=== PATIENT | female | born 1955 | race Caucasian/White ===

== ENCOUNTER 2020-06-03 11:25 | Emergency (ER) | payer MEDICAID, SELFPAY ==
--- NOTE | ~2020-06-03 | XR_ITS ---
EXAMINATION: XR TIBIA AND FIBULA, LEFT CLINICAL INFORMATION: Wound, swelling COMPARISON: None TECHNIQUE: AP and lateral views of the left tibia and fibula were obtained. FINDINGS: There is no visible fracture, dislocation or bony abnormality. There is mild soft tissue swelling along the anterior mid left tibia and fibula. There is no periosteal thickening or elevation. XR/XR tibia fibula LT 2V IMPRESSION: Unremarkable left tibia and fibula. Mild soft tissue swelling..
[2020-06-03 11:29] VITALS: BP 139/65; PULSE 100; RESP 19; TEMP 37.5; O2SAT 94; BMI 28.5
--- NOTE | 2020-06-03 12:18 | ED_ITS ---
HPI - Wound/Laceration General Chief Complaint: Wound/Laceration Stated Complaint: wound check Time Seen by Provider: 06/03/20 12:00 Source: patient Mode of arrival: ambulatory Limitations: no limitations History of Present Illness HPI narrative: 64-year-old female here with complaints of left leg wound. The patient tells me that she has had a chronic wound to the left lower leg for about 9 months. She tells me that the wound got worse 2 months ago with increased swelling and redness and she had a blister which popped over the leg. She tells me she went to [facility] on Wednesday and was admitted with IV antibiotics but left against medical advice on Wednesday. The patient tells me that she left because a visitor came in that she did not know and this made her upset and she feels like the security is poor at [facility]. She is currently homeless. She tells me she has had some subjective fevers and chills over the last 48 hours. No other complaints. She tells me while she was at [facility] she had a venous and arterial ultrasound which were reportedly unremarkable. She tells me she also had labs and an x-ray while she was there. Denies medical history. Denies substance use. Related Data Previous Rx's Medication Instructions Recorded doxycycline monohydrate 100 mg PO BID #21 tab 06/03/20 Allergies Allergy/AdvReac Type Severity Reaction Status Date / Time Sulfa (Sulfonamide AdvReac Intermediate Agitated Verified 06/03/20 11:35 Antibiotics) Review of Systems Review of Systems: Yes all other systems are reviewed and are negative Constitutional: Constitutional: Reports no additional constitutional complain ts, Denies body ache(s), Denies chills, Denies fever(s), Denies headache(s) and Denies weakness Eyes: Eyes: Reports no additional eye complaints and Denies change in vision ENT: Reports system reviewed and no additional complaints, except as documented, Denies dizziness, Denies headache(s), Denies nasal congestion, Denies nasal discharge and Denies neck pain Cardiovascular: Cardiovascular: Reports no additional cardiovascular complaints, Denies chest pain, Denies leg edema and Denies dyspnea Respiratory: Respiratory: Reports no additional respiratory complaints, Denies cough and Denies dyspnea Gastrointestinal: Gastrointestinal: Reports no additional gastrointestinal complaints, Denies abdominal pain, Denies diarrhea, Denies nausea and Denies v omiting Genitourinary: Genitourinary: Reports no additional female genitourinary complaints and Denies urinary incontinence Musculoskeletal: Musculoskeletal: Reports no additional musculoskeletal complaints, Denies back pain, Denies arthralgias, Denies joint swelling, Denies neck pain, Denies numbness and Denies tingling Integumentary/Breasts: Skin/Breast: Reports system reviewed and no additional complaints, except as docu, Reports swelling, Reports erythema, Denies rash and Reports wounds Neurologic: Reports system reviewed and no additional complaints, except as documented, Denies Abnormal speech present, Denies dizziness, Denies headache(s), Denies numbness, Denies tingling and Denies weakness PMFSH Past Medical History Attestation statement: The following information was validated with the patient. Source: old records reviewed and nursing notes reviewed Social History Social History Alcohol intake: never Smoking Status: Never smoker Use of substances other than those prescribed or required for medical reasons: No Advance Directives: No Advance Directives Information Provided: No Physical Exam Vital Signs: Vital Signs: Last Vital Signs Temp 99.5 F 06/03/20 11:29 Pulse 100 06/03/20 11:29 Resp 16 06/03/20 14:00 BP 139/65 06/03/20 11:29 Pulse Ox 94 06/03/20 11:29 Body Mass Index 28.5 Const: General: cooperative, healthy appearing, comfortable and no acute distress Orientation/consciousness: patient oriented x3 Limitations: no limitations HENMT: Head: Yes normal to inspection Ears: hearing grossly normal bilaterally General nose exam: Normal external nose present Face and si nus: Yes normal facial exam Mouth: Normal oral and palatal mucosa present Throat: Yes posterior oropharynx normal Eyes: General: appearance normal, both eyes and all related structures Pupils: Equal, round and reactive pupils present Neck: Neck: Yes normal visual inspection Chest: Chest palpation & inspection: normal inspection of the chest Resp: Effort & Inspection: normal respiratory effort Auscultation: clear to auscultation bilaterally Cardio: Rate: regular rate Rhythm: regular rhythm Peripheral pulses: Peripheral pulses 2+ throughout GI: Inspection: Yes normal to inspection Palpation (GI): Soft to palpation and nontender Auscultation: normal bowel sounds Back/Spine/Pelvis: Thoracic/Lumbar Spine: thoracic and lumbar spine normal to inspection Skin: General skin exam: no rashes or lesions noted Neuro: General: patient oriented x3, no focal motor deficits and normal sensation to monofilament Cranial nerves: Yes Equal, round and reactive pupils present Cognition (Neuro): normal cognition Speech: No Abnormal speech present Gait exam (Neuro): Normal gait present Motor exam (neuro): 5/5 motor strength present throughout Extrem: Other: There is erythema over the left lower extremity with tenderness. There is a wound over the anterior espinosa. Neurovascularly intact distally. No calf pain. General: Yes normal to inspection Course Course Course Narrative: 64-year-old female here with wound to the left lower extremity. Admitted over the weekend at [facility] but left against medical advice. Here today for persistent wound now with subjective fevers and chills. Will need labs including blood cultures and lactic acid. Antibiotics ordered. Will obtain records from [facility]. [id number] to obtain records from [facility]. Labs show no leukocytosis or shift. Afebrile here. Skin changes are likely chronic secondary to peripheral vascular disease. There is a wound which does appear chronic and has been there for quite some time with some local warmth and redness. So likely local infection. Wound culture sent. Discussed patient with Dr. Hutson who saw the patient and agrees patient can go home and try oral antibiotics. We did discuss with her nurse who is her community out reach worker. The patient does have a bed at a local motel and her nurse will help her get her oral antibiotics. Reviewed worrisome signs and symptoms and when to return to the emergency department. Comfortable with discharge home. 1800-reviewed records from [facility] which show a bilateral arterial ultrasound which was negative for any stenosis or occlusion. DVT ultrasound left lower extremity which was negative for DVT. MDM - Wound/Laceration Medical Records Attestation: I reviewed the patient's medical records. Lab Data Attestation: I reviewed the patient's lab results. Result diagrams: 06/03/20 12:57 06/03/20 12:56 Labs: Lab Results 06/03/20 06/03/20 06/03/20 Range/Units 12:56 12:56 12:56 WBC (4.8-10.8) X10*3/uL RBC (4.20-5.50) X10*6/uL Hgb (12.0-16.0) g/dl Hct (37-47) % MCV (80-98) fL MCH (27.0-33.0) pg MCHC (31.0-35.0) g/dl RDW (11.0-16.0) % Plt Count (160-400) X10*3/uL MPV (9.4-12.3) fL Immature Gran % (Auto) (0.0-0.4) % Neut % (Auto) (45-73) % Lymph % (Auto) (20-40) % [place] % (Auto) (2-11) % Eos % (Auto) (0-4) % Baso % (Auto) (0-2) % Lymph # (Auto) (1.2-4.9) X10*3/uL [place] # (Auto) (0.1-1.2) X10*3/uL Eos # (Auto) (0.0-0.4) X10*3/uL Baso # (Auto) (0.0-0.2) X10*3/uL Abs Immat Gran (auto) (0.00-0.03) X10*3/uL Absolute Neuts (auto) (2.0-8.3) X10*3/uL Absolute Nucleated RBC (0.0-0.012) X10*3/uL Nucleated RBC % (auto) (0.0-0.2) /100WBC ESR (0-20) MM/HR Hold Blue Top SEE NOTE Sodium 137 (135-145) mmol/L Potassium 4.5 (3.3-5.1) mmol/L Chloride 101 (96-108) mmol/L Carbon Dioxide 23 (22-29) mmol/L Anion Gap 18 (12-20) BUN 18 H (9-16) mg/dL Creatinine 1.05 (0.5-1.4) mg/dL Estim Creat Clear Calc 61.8 Estimated GFR 53 Random Glucose 73 (60-115) mg/dL Lactic Acid 0.9 (0.5-2.0) mmol/L Calcium 8.9 (8.4-10.2) mg/dL Magnesium 2.5 (1.6-2.6) mg/dL Total Bilirubin 0.3 (0.0-1.0) mg/dL Direct Bilirubin < 0.2 (0.0-0.5) mg/dL AST 16 (5-31) U/L ALT 11 (0-31) U/L Alkaline Phosphatase 62 (39-117) U/L C-Reactive Protein (< or = 0.50) mg/dL Total Protein 6.6 (6.5-8.0) g/dL Albumin 4.1 (3.5-5.0) g/dL COVID-19 (GABBI) (Negative) COVID-19 Clin Com 06/03/20 06/03/20 06/03/20 Range/Units 12:57 12:57 12:57 WBC 5.6 (4.8-10.8) X10*3/uL RBC 5.06 (4.20-5.50) X10*6/uL Hgb 14.1 (12.0-16.0) g/dl Hct 44.1 (37-47) % MCV 87.2 (80-98) fL MCH 27.9 (27.0-33.0) pg MCHC 32.0 (31.0-35.0) g/dl RDW 13.6 (11.0-16.0) % Plt Count 253 (160-400) X10*3/uL MPV 8.7 L (9.4-12.3) fL Immature Gran % (Auto) 0.2 (0.0-0.4) % Neut % (Auto) 70.3 (45-73) % Lymph % (Auto) 18.6 L (20-40) % [place] % (Auto) 6.8 (2-11) % Eos % (Auto) 3.4 (0-4) % Baso % (Auto) 0.7 (0-2) % Lymph # (Auto) 1.0 L (1.2-4.9) X10*3/uL [place] # (Auto) 0.4 (0.1-1.2) X10*3/uL Eos # (Auto) 0.2 (0.0-0.4) X10*3/uL Baso # (Auto) 0.0 (0.0-0.2) X10*3/uL Abs Immat Gran (auto) 0.01 (0.00-0.03) X10*3/uL Absolute Neuts (auto) 3.9 (2.0-8.3) X10*3/uL Absolute Nucleated RBC 0.000 (0.0-0.012) X10*3/uL Nucleated RBC % (auto) 0.0 (0.0-0.2) /100WBC ESR (0-20) MM/HR Hold Blue Top Sodium (135-145) mmol/L Potassium (3.3-5.1) mmol/L Chloride (96-108) mmol/L Carbon Dioxide (22-29) mmol/L Anion Gap (12-20) BUN (9-16) mg/dL Creatinine (0.5-1.4) mg/dL Estim Creat Clear Calc Estimated GFR Random Glucose (60-115) mg/dL Lactic Acid (0.5-2.0) mmol/L Calcium (8.4-10.2) mg/dL Magnesium (1.6-2.6) mg/dL Total Bilirubin (0.0-1.0) mg/dL Direct Bilirubin (0.0-0.5) mg/dL AST (5-31) U/L ALT (0-31) U/L Alkaline Phosphatase (39-117) U/L C-Reactive Protein 1.11 H (< or = 0.50) mg/dL Total Protein (6.5-8.0) g/dL Albumin (3.5-5.0) g/dL COVID-19 (GABBI) Negative (Negative) COVID-19 Clin Com See Note 06/03/20 Range/Units 13:20 WBC (4.8-10.8) X10*3/uL RBC (4.20-5.50) X10*6/uL Hgb (12.0-16.0) g/dl Hct (37-47) % MCV (80-98) fL MCH (27.0-33.0) pg MCHC (31.0-35.0) g/dl RDW (11.0-16.0) % Plt Count (160-400) X10*3/uL MPV (9.4-12.3) fL Immature Gran % (Auto) (0.0-0.4) % Neut % (Auto) (45-73) % Lymph % (Auto) (20-40) % [place] % (Auto) (2-11) % Eos % (Auto) (0-4) % Baso % (Auto) (0-2) % Lymph # (Auto) (1.2-4.9) X10*3/uL [place] # (Auto) (0.1-1.2) X10*3/uL Eos # (Auto) (0.0-0.4) X10*3/uL Baso # (Auto) (0.0-0.2) X10*3/uL Abs Immat Gran (auto) (0.00-0.03) X10*3/uL Absolute Neuts (auto) (2.0-8.3) X10*3/uL Absolute Nucleated RBC (0.0-0.012) X10*3/uL Nucleated RBC % (auto) (0.0-0.2) /100WBC ESR 7 (0-20) MM/HR Hold Blue Top Sodium (135-145) mmol/L Potassium (3.3-5.1) mmol/L Chloride (96-108) mmol/L Carbon Dioxide (22-29) mmol/L Anion Gap (12-20) BUN (9-16) mg/dL Creatinine (0.5-1.4) mg/dL Estim Creat Clear Calc Estimated GFR Random Glucose (60-115) mg/dL Lactic Acid (0.5-2.0) mmol/L Calcium (8.4-10.2) mg/dL Magnesium (1.6-2.6) mg/dL Total Bilirubin (0.0-1.0) mg/dL Direct Bilirubin (0.0-0.5) mg/dL AST (5-31) U/L ALT (0-31) U/L Alkaline Phosphatase (39-117) U/L C-Reactive Protein (< or = 0.50) mg/dL Total Protein (6.5-8.0) g/dL Albumin (3.5-5.0) g/dL COVID-19 (GABBI) (Negative) COVID-19 Clin Com Imaging Data tibia/fibular x-ray: Attestation: I personally reviewed and interpreted this imaging study as follows: Radiologist's impression: EXAMINATION: XR TIBIA AND FIBULA, LEFT CLINICAL INFORMATION: Wound, swelling COMPARISON: None TECHNIQUE: AP and lateral views of the left tibia and fibula were obtained. FINDINGS: There is no visible fracture, dislocation or bony abnormality. There is mild soft tissue swelling along the anterior mid left tibia and fibula. There is no periosteal thickening or elevation. XR/XR tibia fibula LT 2V IMPRESSION: Unremarkable left tibia and fibula. Mild soft tissue swelling.. Discharge Plan Discharge Clinical Impression: Wound cellulitis Patient Disposition: Home, Self-Care Instructions: Wound Infection (ED) Additional Instructions: Start taking your antibiotic today. [facility] with [facility]. You must call for an appointment. Keep the wound clean and dry. Watch the wound and return for increasing redness up the leg, foul odor or increasing drainage from the site or fever greater than 100.4 Prescriptions: New doxycycline monohydrate 100 mg tablet 100 mg PO BID Qty: 21 RF: 0 Referrals: Prince Christian MD [Physician] - 2 days Interventions: ED Discharge Assessment Last Done: 06/03/20 15:55 Discharge Date/Time: 06/03/20 15:59
[2020-06-03 13:11] LABS: MANUAL DIFF FLAG NO
[2020-06-03 13:13] LABS: Basophils Percent Auto 0.7 % (0-2); Eosinophils Absolute Auto 0.2 X10*3/uL (0.0-0.4); Eosinophils Percent Auto 3.4 % (0-4); Hematocrit 44.1 % (37-47); Hemoglobin 14.1 g/dl (12.0-16.0); Imm Gran Abs Auto 0.01 X10*3/uL (0.00-0.03); Imm Gran Pct Auto 0.2 % (0.0-0.4); Lymphocytes Percent Auto 18.6 % (20-40); Mean Corpuscular Hemoglobin 27.9 pg (27.0-33.0); Mean Corpuscular Volume 87.2 fL (80-98); Mean Platelet Volume 8.7 fL (9.4-12.3); Monocytes Absolute Auto 0.4 X10*3/uL (0.1-1.2); Monocytes Percent Auto 6.8 % (2-11); Neutrophils Absolute Auto 3.9 X10*3/uL (2.0-8.3); Neutrophils Percent Auto 70.3 % (45-73); Platelet Count 253 X10*3/uL (160-400); Red Blood Count 5.06 X10*6/uL (4.20-5.50); Red Cell Distribution Width 13.6 % (11.0-16.0); White Blood Count 5.6 X10*3/uL (4.8-10.8)
[2020-06-03 13:27] LABS: COVID-19 Test Negative (Negative)
[2020-06-03] MEDS: Piperacillin Sodium/Tazobactam 3.375 GM in 0.9 % Sodium Chloride 50 ML IV (13:31)
[2020-06-03 13:37] LABS: Lactic Acid 0.9 mmol/L (0.5-2.0)
[2020-06-03 13:40] LABS: C Reactive Protein 1.11 mg/dL (< or = 0.50)
[2020-06-03 13:42] LABS: Alanine Aminotransferase 11 U/L (0-31); Albumin Level 4.1 g/dL (3.5-5.0); Alkaline Phosphatase 62 U/L (39-117); Anion Gap 18 (12-20); Aspartate Amino Transferase 16 U/L (5-31); Bilirubin Direct < 0.2 mg/dL (0.0-0.5); Bilirubin Total 0.3 mg/dL (0.0-1.0); Blood Urea Nitrogen 18 mg/dL (9-16); Calcium 8.9 mg/dL (8.4-10.2); Carbon Dioxide 23 mmol/L (22-29); Chloride 101 mmol/L (96-108); Creatinine Clr Calc Pharmacy 61.8; Estimated Glomerular Filt Rate 53; Glucose Random 73 mg/dL (60-115); Magnesium 2.5 mg/dL (1.6-2.6); Potassium 4.5 mmol/L (3.3-5.1); Sodium 137 mmol/L (135-145); Total Protein 6.6 g/dL (6.5-8.0)
[2020-06-03 14:00] VITALS: RESP 16
[2020-06-03 14:09] LABS: Erythrocyte Sedimentation Rate 7 MM/HR (0-20)
--- NOTE | 2020-06-03 15:35 | PC.NURSE ---
attempt to contact sohan goldman contact for pt regarding taxi voucher. no answer on cell or work phone. [phone]
== END 2020-06-03 15:59 | disposition home or self-care (01) ==
PROVIDERS: Nurse Practitioner Family; Emergency Provider Emergency Medicine
DX: L03.116 Cellulitis of left lower limb (principal); Z20.822 Contact with and (suspected) exposure to COVID-19
CPT/HCPCS: 36415; 73590; 80048; 80076; 83605; 83735; 85025; 85652; 86140; 87040; 87071; 87147; 87186; 87205; 87635; 96365; 99285; J2543

== ENCOUNTER 2021-04-25 15:35 | Emergency (ER) | payer MEDICARE, SELFPAY | END 2021-04-25 16:44 | disposition left against medical advice (07) | PROVIDERS: Emergency Provider Emergency Medicine | DX: M79.89 Other specified soft tissue disorders (principal) ==

== ENCOUNTER 2021-09-05 16:00 | Emergency (ER) | payer MEDICARE, SELFPAY ==
[2021-09-05 16:05] VITALS: BP 160/84; PULSE 93; RESP 18; TEMP 36.7; O2SAT 97; BMI 27.3
[2021-09-05 16:36] LABS: COVID-19 Test Positive (Negative); IDNOW Serial# 16C4AD1C; Influenza A Negative (Negative); Influenza B2 Negative (Negative)
--- NOTE | 2021-09-05 17:09 | ED_ITS ---
HPI - General Adult General Chief complaint: General Medical Stated complaint: headaches/sinuses Time Seen by Provider: 09/05/21 17:06 Source: patient Mode of arrival: ambulatory Limitations: no limitations History of Present Illness HPI narrative: 66 yo female came in for evaluation of fever, chills, body ache, sore throat, and sinus pressure. symptoms started since last night, patient is homeless currently stay in motel on the list for housing. Related Data Previous Rx's Medication Instructions Recorded doxycycline monohydrate 100 mg 100 mg PO BID #21 tabs 06/03/20 tablet Allergies Allergy/AdvReac Type Severity Reaction Status Date / Time Sulfa (Sulfonamide AdvReac Intermediate Agitated Verified 06/03/20 11:35 Antibiotics) Review of Systems Review of Systems: All other systems are reviewed and are negative Constitutional: Reports as per HPI and Reports no additional constitutional complaints Eyes: Reports as per HPI and Reports no additional eye complaints Reports system reviewed and no additional complaints, except as documented Cardiovascular: Reports as per HPI and Reports no additional cardiovascular complaints Respiratory: Reports as per HPI and Reports no additional respiratory complaints Gastrointestinal: Reports as per HPI and Reports no additional gastrointestinal complaints Genitourinary: Reports no additional female genitourinary complaints Musculoskeletal: Reports no additional musculoskeletal complaints Skin/Breast: Reports system reviewed and no additional complaints, except as docu Psychiatric: Reports no additional psychiatric complaints Endocrine: Reports no additional endocrine complaints Hematologic/Lymphatic: Reports no additional hematologic/lymphatic complaints Allergic/Immunologic: Reports no additional allergic/immunologic complaints Reports system reviewed and no additional complaints, except as documented and Reports Abnormal speech present FOR[facility] Social History Social History Alcohol intake: never Advance Directives: No Physical Exam ED Vital Signs: Vital Signs - 24 hr 09/05/21 16:05 Temperature 98.1 F Pulse Rate 93 Respiratory Rate 18 Blood Pressure 160/84 H Pulse Oximetry 97 Oxygen Delivery Method Room Air BMI result Body Mass Index 27.3 Vital signs have been reviewed as appeared to be correct. Blood pressure normal. Heart rate normal. Respiration rate normal. Temperature normal. Oxygen saturation normal. Appearance: Alert. Oriented X3. No acute distress. Head: Normal external exam. Normocephalic. Atraumatic. No Bass signs noted. No raccoon eyes noted Eyes: PERRLA. EOMI. Conjunctiva and sclera normal. Eyelids normal. ENT: TM's Normal. Pharynx normal. Uvula midline. Moist mucous membranes. No trismus noted. No drooling noted. No muffled voice noted. Neck: Normal inspection. Neck supple. FROM. No adenopathy. Thyroid Normal. No meningeal signs. No neck mass noted. CVS: Normal heart rate and rhythm. Heart sound normal. No murmurs noted. Pulses normal throughout. Respiratory: No respiratory distress. Painless inspiration. Breath sounds normal. No wheezes/rales/rhonchi noted. Chest nontender. No accessory muscle usage noted or decreased air movement noted. Abdomen: Soft and nontender. Bowel sounds normal in all 4 quadrants. No distention noted. No organomegaly noted. No visible injury noted. Back: No CVA tenderness. Full range of motion noted. Skin: Skin warm and dry. Normal skin color. Normal skin turgor. No rashes/lesions/lacerations noted. Extremities: No lower extremity edema. Extremities exhibit normal range of motion. Extremities nontender. Neuro: Oriented X 3. Cranial nerve exam: II-XII are grossly intact No motor deficit. No sensory deficit. Reflexes normal. Course Course Course Narrative: 66-year-old female came in for evaluation of flu-like symptoms patient tested positive for COVID, normal O2 sat and all her normal respiratory rate, normal lung exam, patient was instructed to continue quarantine and self isolation using face mask an acute social distancing with frequent handwashing. Patient also was instructed to return if worsening of symptoms. Medical Decision Making Lab Data Lab results reviewed: Yes I reviewed the patient's lab results. Labs: Lab Results 09/05/21 09/05/21 Range/Units 16:10 16:10 COVID-19 (GABBI) Positive A (Negative) COVID-19 Clin Com See Note Influenza Type A (BRAYAN) Negative (Negative) Influenza Type B (BRAYAN) Negative (Negative) Influenza A & B Note See Note Discharge Plan Discharge Clinical Impression: COVID-19 virus infection Patient Disposition: Home, Self-Care Instructions: Covid-19 Viral Syndrome and Novel Coronavirus (ED) Hey/Ath Additional Instructions: keep face mask at all times/ self quarantine and isolation/ tylenol if needed for feve. Prescriptions: No Action doxycycline monohydrate 100 mg tablet 100 mg PO BID Qty: 21 0RF Referrals: Physician,Unknown J [Primary Care Provider] - Interventions: ED Discharge Assessment Last Done: 09/05/21 17:16 Discharge Date/Time: 09/05/21 17:27
== END 2021-09-05 17:27 | disposition home or self-care (01) ==
LOC: HO.ED 17:26
PROVIDERS: Emergency Provider Emergency Medicine
DX: U07.1 COVID-19 (principal)
CPT/HCPCS: 87502; 87635; 99283

== ENCOUNTER 2021-10-30 15:49 | Emergency (ER) | payer MEDICAID, SELFPAY ==
[2021-10-30 16:38] VITALS: BP 162/85; PULSE 94; RESP 18; TEMP 36.6; O2SAT 99; BMI 24.3
[2021-10-30 20:52] VITALS: BP 146/78; PULSE 99; RESP 17; O2SAT 95
[2021-10-30 22:43] LABS: MANUAL DIFF FLAG NO
[2021-10-30 22:47] LABS: Basophils Absolute Auto 0.1 X10*3/uL (0.0-0.2); Eosinophils Absolute Auto 0.4 X10*3/uL (0.0-0.4); Eosinophils Percent Auto 4.5 % (0-4); Hemoglobin 13.7 g/dl (12.0-16.0); Imm Gran Abs Auto 0.02 X10*3/uL (0.00-0.03); Imm Gran Pct Auto 0.3 % (0.0-0.4); Lymphocytes Percent Auto 25.8 % (20-40); Mean Corpuscular HGB Conc 31.9 g/dl (31.0-35.0); Mean Corpuscular Hemoglobin 28.8 pg (27.0-33.0); Mean Corpuscular Volume 90.5 fL (80.0-98.0); Monocytes Absolute Auto 0.5 X10*3/uL (0.1-1.2); Monocytes Percent Auto 6.3 % (2-11); Neutrophils Absolute Auto 4.9 x10*3/uL (2.0-8.3); Neutrophils Percent Auto 62.1 % (45-73); Platelet Count 261 X10*3/uL (160-400); Red Blood Count 4.75 X10*6/uL (4.20-5.50); Red Cell Distribution Width 14.6 % (11.0-16.0); White Blood Count 7.9 X10*3/uL (4.8-10.8)
[2021-10-30 23:12] LABS: Alanine Aminotransferase 16 U/L (0-31); Albumin Level 4.3 g/dL (3.5-5.0); Alkaline Phosphatase 77 U/L (39-117); Anion Gap 16 (12-20); Aspartate Amino Transferase 14 U/L (5-31); Bilirubin Total 0.3 mg/dL (0.0-1.0); Blood Urea Nitrogen 16 mg/dL (9-16); Calcium 9.3 mg/dL (8.4-10.2); Carbon Dioxide 24 mmol/L (22-29); Chloride 105 mmol/L (96-108); Creatinine Clr Calc Pharmacy 54.1; Estimated Glomerular Filt Rate 54; Glucose Random 106 mg/dL (60-115); Sodium 141 mmol/L (135-145); Total Protein 6.9 g/dL (6.5-8.0)
--- NOTE | 2021-10-30 23:13 | ED_ITS ---
HPI - General Adult General Chief complaint: General Medical Stated complaint: swollen legs Time Seen by Provider: 10/30/21 23:11 History of Present Illness HPI narrative: Patient is 66 years old homeless presents today with having leg swelling that is been ongoing month. Redness has been ongoing month. Patient had a history of cellulitis was seen in emergency department about a year ago. Presented today with having similar findings. There is no fever no chills. No systemic comp laints. This time around both legs are affected. Not on any medication. No history of congestive heart failure. No history of DVTs in the past. Patient is homeless on her feet most of the day. No chest pain or shortness of breath no diaphoresis. Related Data Previous Rx's Medication Instructions Recorded doxycycline monohydrate 100 mg 100 mg PO BID #21 tabs 06/03/20 tablet doxycycline hyclate 100 mg capsule 100 mg PO BID cough 10 days #20 10/30/21 caps doxycycline hyclate 100 mg capsule 100 mg PO BID cough 7 days #14 caps 10/30/21 Allergies Allergy/AdvReac Type Severity Reaction Status Date / Time Sulfa (Sulfonamide AdvReac Intermediate Agitated Verified 06/03/20 11:35 Antibiotics) Review of Systems Review of Systems: Positive redness to bilateral lower extremity No chest pain No orthopnea No paroxysmal nocturnal dyspnea Yes all other systems are reviewed and are n egative [facility] Social History Social History Alcohol intake: never Advance Directives: No Advance Directives Information Provided: No Physical Exam ED Vital Signs: Vital Signs - 24 hr 10/30/21 16:38 10/30/21 20:52 Temperature 97.9 F Pulse Rate 94 99 Respiratory Rate 18 17 Blood Pressure 162/85 H 146/78 H Pulse Oximetry 99 95 Oxygen Delivery Method Room Air Room Air BMI result Body Mass Index 24.3 Appearance: Alert. Oriented X3. No acute distress. Eyes: Pupils equal, round and reactive to light. ENT: Pharynx normal. Neck: Normal inspection. Neck supple. No lymph nodes noted. No crepitus CVS: Normal heart rate and rhythm. Pulses normal. Normal S1 and S2 Respiratory: No respiratory distress. Breath sounds normal. No Wheezing. No rales Abdomen: Soft and nontender. No rigidity. No distention. good BS x4 Skin: Skin warm and dry. Normal skin color. Normal skin turgor. Extremities: 2+ edema to bilateral lower extremity slightly warm to touch. There is an ulcer over the left mid leg area. Approximately 3 cm x 3 cm in size. When compared to a picture from 2020 this appears about the same. Distal pulses intact. Sensation intact. Neuro: Oriented X 3. No motor deficit. No sensory deficit. Moving all extermities. No slurred speech Medical Decision Making Lab Data Result diagrams: 10/30/21 22:38 10/30/21 22:38 Labs: Lab Results 10/30/21 10/30/21 10/30/21 Range/Units 22:38 22:38 22:38 WBC 7.9 (4.8-10.8) X10*3/uL RBC 4.75 (4.20-5.50) X10*6/uL Hgb 13.7 (12.0-16.0) g/dl Hct 43.0 (37.0-47.0) % MCV 90.5 (80.0-98.0) fL MCH 28.8 (27.0-33.0) pg MCHC 31.9 (31.0-35.0) g/dl RDW 14.6 (11.0-16.0) % Plt Count 261 (160-400) X10*3/uL MPV 9.0 L (9.4-12.3) fL Immature Gran % (Auto) 0.3 (0.0-0.4) % Neut % (Auto) 62.1 (45-73) % Lymph % (Auto) 25.8 (20-40) % [place] % (Auto) 6.3 (2-11) % Eos % (Auto) 4.5 H (0-4) % Baso % (Auto) 1.0 (0-2) % Lymph # (Auto) 2.0 (1.2-4.9) X10*3/uL [place] # (Auto) 0.5 (0.1-1.2) X10*3/uL Eos # (Auto) 0.4 (0.0-0.4) X10*3/uL Baso # (Auto) 0.1 (0.0-0.2) X10*3/uL Abs Immat Gran (auto) 0.02 (0.00-0.03) X10*3/uL Absolute Neuts (auto) 4.9 (2.0-8.3) x10*3/uL Absolute Nucleated RBC 0.000 (0.0-0.012) X10*3/uL Nucleated RBC % (auto) 0.0 (0.0-0.2) /100WBC Sodium 141 (135-145) mmol/L Potassium 4.0 (3.3-5.1) mmol/L Chloride 105 (96-108) mmol/L Carbon Dioxide 24 (22-29) mmol/L Anion Gap 16 (12-20) BUN 16 (9-16) mg/dL Creatinine 1.03 (0.5-1.4) mg/dL Estim Creat Clear Calc 54.1 Estimated GFR 54 Random Glucose 106 (60-115) mg/dL Calcium 9.3 (8.4-10.2) mg/dL Total Bilirubin 0.3 (0.0-1.0) mg/dL AST 14 (5-31) U/L ALT 16 (0-31) U/L Alkaline Phosphatase 77 D (39-117) U/L B-Natriuretic Peptide < 10 (<100) pg/mL Total Protein 6.9 (6.5-8.0) g/dL Albumin 4.3 (3.5-5.0) g/dL Discharge Plan Discharge Patient Disposition: Home, Self-Care Instructions: Cellulitis (ED) Prescriptions: New doxycycline hyclate 100 mg capsule 100 mg PO BID 7 Days Qty: 14 0RF doxycycline hyclate 100 mg capsule 100 mg PO BID 10 Days Qty: 20 0RF No Action doxycycline monohydrate 100 mg tablet 100 mg PO BID Qty: 21 0RF Referrals: Physician,None [Primary Care Provider] - (Warm soaks elevate please take antibiotic please follow-up closely follow-up in 2 days.)
[2021-10-30 23:19] LABS: B Type Natriuretic Peptide < 10 pg/mL (<100)
[2021-10-30 23:55] VITALS: BP 145/70; PULSE 87; RESP 17
--- NOTE | 2021-10-31 | PC.NURSE ---
Patient declined BC stating she just needed script and wanted to go home
== END 2021-10-30 23:57 | disposition home or self-care (01) ==
PROVIDERS: Emergency Provider Emergency Medicine Emergency Medical Services
DX: R60.0 Localized edema (principal); R06.02 Shortness of breath; Z79.899 Other long term (current) drug therapy
CPT/HCPCS: 36415; 80053; 83880; 85025; 87040; 99283

== ENCOUNTER 2022-04-28 09:28 | Emergency (ER) | payer MEDICAID, SELFPAY ==
--- NOTE | ~2022-04-28 | US_ITS ---
EXAMINATION: US VENOUS ULTRASOUND WITH DOPPLER LOWER EXTREMITY, BILATERAL CLINICAL INFORMATION: Leg swelling. Calf pain. COMPARISON: None TECHNIQUE: Ultrasound of the deep veins is performed from the hip to the calf with compression sonography and color and pulse Doppler assessment. Spectral analysis with color-flow imaging is performed. FINDINGS: RIGHT: There is normal venous compression and respiratory variation and augmented flow. The visualized common femoral vein, superficial femoral vein, profunda femoral vein, popliteal vein, and the trifurcation region shows no evidence of deep venous thrombosis. There is no significant popliteal fossa cyst. LEFT: There is normal venous compression and respiratory variation and augmented flow. The visualized common femoral vein, superficial femoral vein, profunda femoral vein, popliteal vein, and the trifurcation region shows no evidence of deep venous thrombosis. There is no significant popliteal fossa cyst. If the patient's symptoms persist, followup ultrasound in 5 days 7 days might be of value to exclude proximal propagation from a non-visualized calf vein. US/US venous duplex LE BI IMPRESSION: No DVT demonstrated in the bilateral lower extremities.
--- NOTE | ~2022-04-28 | XR_ITS ---
EXAMINATION: CR X-RAY FOOT AND ANKLE LEFT CLINICAL INFORMATION: Anterior ankle and foot pain and swelling. COMPARISON: None TECHNIQUE: 3 views each of the left foot and ankle were obtained. FINDINGS: A subtle linear lucency is seen in the medial malleolus. The lateral malleolus appears intact. The tibiotalar joint space is unremarkable. The tarsal bones are normally aligned. There is a small plantar calcaneal spur. The metatarsals and phalanges are unremarkable. Mild to moderate soft tissue swelling is seen most pronounced surrounding the ankle. XR/XR foot LT min 3V IMPRESSION: Subtle linear lucency in the medial malleolus could represent an acute nondisplaced fracture. Correlate with physical exam.
--- NOTE | ~2022-04-28 | XR_ITS ---
EXAMINATION: CR X-RAY FOOT AND ANKLE LEFT CLINICAL INFORMATION: Anterior ankle and foot pain and swelling. COMPARISON: None TECHNIQUE: 3 views each of the left foot and ankle were obtained. FINDINGS: A subtle linear lucency is seen in the medial malleolus. The lateral malleolus appears intact. The tibiotalar joint space is unremarkable. The tarsal bones are normally aligned. There is a small plantar calcaneal spur. The metatarsals and phalanges are unremarkable. Mild to moderate soft tissue swelling is seen most pronounced surrounding the ankle. XR/XR ankle LT min 3V IMPRESSION: Subtle linear lucency in the medial malleolus could represent an acute nondisplaced fracture. Correlate with physical exam.
[2022-04-28 09:58] VITALS: BP 144/66; PULSE 89; RESP 16; TEMP 36.4; O2SAT 93; BMI 27.3
--- OUTSIDE RECORDS SUMMARY | 2022-04-28 10:14 | XMS_ITS | Continuity of Care Document ---
:1955 Author Organization [facility] Address [address] [place] [address]- Care Team Providers Name Role Phone Fatemeh ENCARNACION, Ida Guadalupe Primary Care Physician [place] [facility] [place] - 07/24/[address] [address]- [facility] Encounter Diagnosis Paranoia (Final) - 07/21/19 Discharge Disposition: Transfer to [facility] Facility Attending Physician: Mariola Wells MD Admitting Physician: Mariola Wells MD Referring Physician: Not on Staff, Referring MD Allergies, Adverse Reactions, Alerts Substance Reaction Severity Status Lactose Active Medications aspirin 325 mg oral enteric coated tablet 2 tablet = 650 mg, By Mouth, Daily at bedtime, # 50 tablet, 3 Refills Start Date: 08/31/08 Stop Date: 09/29/08 Status: Orderedazithromycin 250 mg oral tablet 1 tablet = 250 mg, By Mouth, Daily, begin tomorrow, # 4 tablet, 0 Refills, Maintenance, 06/11/16 15:57:29, Tablet Start Date: 06/11/16 Stop Date: 06/15/16 Status: Orderedcalcium-vitamin D 600 mg-400 intl units oral tablet 1, tablet, By Mouth, 3 times a day, 90, tablet, , , 02/10/08 15:09:02, prevent osteoporosis, Print LEANNE Number, [id number], Constant Indicator Start Date: 02/10/08 Status: Orderedloratadine 10 mg oral tablet 10 mg, 1, tablet, By Mouth, Daily, # 7 tablet, Refills 0, Tot. Refills 0, Maintenance, 07/22/17 16:26:21 EDT, Print Requisition Start Date: 07/22/17 Stop Date: 07/29/17 Status: OrderedrisperiDONE 1 mg oral tablet 1 mg, 1, tablet, By Mouth, 2 times a day, Refills 0, Maintenance, 06/11/16 14:26:00 Start Date: 06/11/16 Status: Ordered Problem List Condition Effective Dates Status Health Status Informant Cholecystectomy(Confirmed) Active Chronic schizophrenia(Confirmed) Active Dental caries(Confirmed) 05/28/08 Active Homeless(Confirmed) Active Vital Signs Most recent to oldest [Reference 1 2 3 Range]: Oxygen Saturation [94-100 %] 97 % 100 % 98 % (07/24/19 3:03 PM) (07/24/19 6:43 AM) (07/23/19 2:30 P M) Pulse Rate [55-90 bpm] 76 bpm 97 bpm 81 bpm (07/24/19 3:03 PM) *H* (07/23/19 2:30 PM ) (07/24/19 6:43 AM) Blood Pressure [90-138/55-84 mm 119/76 mm Hg 144/96 mm Hg 122/72 mm Hg Hg] (07/24/19 3:03 PM) *H* (07/23/19 2:30 PM ) (07/24/19 6:43 AM) Respiratory Rate [16-30 br/min] 16 br/min 16 br/min 18 br/min (07/24/19 3:03 PM) (07/24/19 6:43 AM) (07/23/19 2:30 P M) Temperature [96.8-100.4 DegF] 97.5 DegF 97.9 DegF 98 .5 DegF (07/24/19 3:03 PM) (07/24/19 6:43 AM) (07/23/19 2:30 P M) Mode of Delivery (Oxygen) Room air Room air Room a ir (07/24/19 3:03 PM) (07/24/19 6:43 AM) (07/23/19 2:30 P M) Blood pressure sites Arm, right Arm, right Arm, right (07/24/19 3:03 PM) (07/24/19 6:43 AM) (07/23/19 2:30 P M) Temperature Route Oral Oral Oral (07/24/19 3:03 PM) (07/24/19 6:43 AM) (07/23/19 2:30 P M) Social History Social History Type Response Smoking Status Never smoker entered on: 06/11/16 Sex
--- OUTSIDE RECORDS SUMMARY | 2022-04-28 10:14 | XMS_ITS | Continuity of Care Document ---
:1955 Author Organization [facility] Address [address] [place] [address]- Care Team Providers Name Role Phone Fatemeh ENCARNACION, Ida Guadalupe Primary Care Physician [place] [facility] [place] 05/30/20 - 06/29/20 [facility] [address] [place], [place] [address] Attending Physician: Saumya Jackson Admitting Physician: Saumya Jackson Referring Physician: Admtr ArOdalys Allergies, Adverse Reactions, Alerts Substance Reaction Severity Status Lactose Active Problem List Condition Effective Dates Status Health Status Informant Cholecystectomy(Confirmed) Active Chronic schizophrenia(Confirmed) Active Dental caries(Confirmed) 05/28/08 Active Homeless(Confirmed) Active Social History Social History Type Response Smoking Status Never smoker entered on: 06/11/16 Sex
--- OUTSIDE RECORDS SUMMARY | 2022-04-28 10:14 | XMS_ITS | Continuity of Care Document ---
:1955 Author Organization [facility] Address [address] [place] [address]- Care Team Providers Name Role Phone Fatemeh ENCARNACION, Ida Guadalupe Primary Care Physician [place] [facility] [place] 04/25/21 - 05/25/21 [facility] [address], [place] [address] Attending Physician: Saumya Jackson Admitting Physician: Saumya Jackson Referring Physician: AdmtrSaumya Allergies, Adverse Reactions, Alerts Substance Reaction Severity Status Lactose Active Medications CeraVe topical cream 1 application, Topically, 2 times a day, PRN for dry skin, # 454 Gm, 0 Refills, Maintenance, 04/25/21 17:23:00 EST, Cream, Partial fill upon patient request if the prescription is for a schedule II opioid drug. Start Date: 04/25/21 Status: Ordered Problem List Condition Effective Dates Status Health Status Informant Cholecystectomy(Confirmed) Active Chronic schizophrenia(Confirmed) Active Dental caries(Confirmed) 05/28/08 Active Homeless(Confirmed) Active Social History Social History Type Response Smoking Status Never smoker entered on: 06/11/16 Sex
--- OUTSIDE RECORDS SUMMARY | 2022-04-28 10:14 | XMS_ITS | Continuity of Care Document ---
:1955 Author Organization [facility] Address [address] [place] [address]- Care Team Providers Name Role Phone Ida Weldon NP Primary Care Physician [place] [facility] [place] - 06/29/20 [facility] [address] [place], [place] [address] Attending Physician: Chauncey Ching MD Admitting Physician: Chauncey Ching MD Referring Physician: Ida Weldon NP Allergies, Adverse Reactions, Alerts Substance Reaction Severity Status Lactose Active Problem List Condition Effective Dates Status Health Status Informant Cholecystectomy(Confirmed) Active Chronic schizophrenia(Confirmed) Active Dental caries(Confirmed) 05/28/08 Active Homeless(Confirmed) Active Social History Social History Type Response Smoking Status Never smoker entered on: 06/11/16 Sex
--- OUTSIDE RECORDS SUMMARY | 2022-04-28 10:14 | XMS_ITS | Continuity of Care Document ---
:1955 Author Organization [facility] Address [address] [place] [address]- Care Team Providers Name Role Phone Ida Weldon NP Primary Care Physician [id number] Date[facility]s): 04/25/21 - 05/02/21 [facility] [address] [place], [place] [address] Encounter Diagnosis Cellulitis of right leg (Discharge Diagnosis) - 04/25/21 Dry skin (Discharge Diagnosis) - 04/25/21 Attending Physician: Lokesh Bocanegra DO Referring Physician: Ida Weldon NP Allergies, Adverse Reactions, Alerts Substance Reaction Severity Status Lactose Active Medications cephalexin monohydrate 500 mg oral capsule 1 capsule = 500 mg, By Mouth, 4 times a day, for 10 days, # 40 capsule, 0 Refills, Acute 05/05/21 17:23:00 EDT, 04/25/21 17:23:00 EST, Capsule, Partial fill upon patient request if the prescription is for a schedule II opioid drug. Start Date: 04/25/21 Stop Date: 05/05/21 Status: OrderedCeraVe topical cream 1 application, Topically, 2 times a day, PRN for dry skin, # 454 Gm, 0 Refills, Maintenance, 04/25/21 17:23:00 EST, Cream, Partial fill upon patient request if the prescription is for a schedule II opioid drug. Start Date: 04/25/21 Status: Ordered Problem List Condition Effective Dates Status Health Status Informant Cholecystectomy(Confirmed) Active Chronic schizophrenia(Confirmed) Active Dental caries(Confirmed) 05/28/08 Active Homeless(Confirmed) Active Diagnosis Diagnosis Type Effective Dates Health Clinical Infor mant Status Service Cellulitis of Discharge 04/25/21 right leg Diagnosis Dry skin Discharge 04/25/21 Diagnosis Vital Signs Most recent to oldest [Reference Range]: 1 Height 172 cm (3/11/22 4:53 PM) Oxygen Saturation [94-100 %] 98 % (04/25/21 4:53 PM) Pulse Rate [55-90 bpm] 113 bpm *H* (04/25/21 4:53 PM) Blood Pressure [90-138/55-84 mm Hg] 144/78 mm Hg *H* (04/25/21 4:53 PM) Temperature [96.8-100.4 DegF] 97.7 DegF (04/25/21 4:53 PM) Mode of Delivery (Oxygen) Room air (04/25/21 4:53 PM) Blood pressure sites Arm, left (04/25/21 4:53 PM) Temperature Route Temporal (04/25/21 4:53 PM) Social History Social History Type Response Smoking Status Never smoker entered on: 06/11/16 Sex
[2022-04-28 12:32] LABS: MANUAL DIFF FLAG NO
[2022-04-28 12:35] LABS: Basophils Absolute Auto 0.1 X10*3/uL (0.0-0.2); Basophils Percent Auto 0.9 % (0-2); Eosinophils Absolute Auto 0.2 X10*3/uL (0.0-0.4); Eosinophils Percent Auto 2.3 % (0-4); Hematocrit 43.1 % (37.0-47.0); Imm Gran Abs Auto 0.02 X10*3/uL (0.00-0.03); Imm Gran Pct Auto 0.2 % (0.0-0.4); Lymphocytes Absolute Auto 1.8 X10*3/uL (1.2-4.9); Lymphocytes Percent Auto 20.5 % (20-40); Mean Corpuscular HGB Conc 32.5 g/dl (31.0-35.0); Mean Corpuscular Hemoglobin 28.6 pg (27.0-33.0); Mean Corpuscular Volume 88.1 fL (80.0-98.0); Monocytes Absolute Auto 0.4 X10*3/uL (0.1-1.2); Neutrophils Absolute Auto 6.3 x10*3/uL (2.0-8.3); Neutrophils Percent Auto 71.1 % (45-73); Platelet Count 259 X10*3/uL (160-400); Red Blood Count 4.89 X10*6/uL (4.20-5.50); Red Cell Distribution Width 15.2 % (11.0-16.0); White Blood Count 8.8 X10*3/uL (4.8-10.8)
[2022-04-28 12:43] LABS: Prothrombin Time 11.1 SEC (10.0-13.1)
[2022-04-28 12:59] LABS: C Reactive Protein 1.01 mg/dL (< or = 0.50); Uric Acid 4.7 mg/dL (2.4-5.7)
[2022-04-28 13:00] LABS: Alanine Aminotransferase 20 U/L (0-31); Albumin Level 4.3 g/dL (3.5-5.0); Alkaline Phosphatase 67 U/L (39-117); Anion Gap 13 (12-20); Aspartate Amino Transferase 21 U/L (5-31); Bilirubin Total 0.6 mg/dL (0.0-1.0); Blood Urea Nitrogen 11 mg/dL (9-16); Carbon Dioxide 26 mmol/L (22-29); Chloride 107 mmol/L (96-108); Creatinine Clr Calc Pharmacy 77.5; Estimated Glomerular Filt Rate > 60; Glucose Random 96 mg/dL (60-115); Magnesium 2.4 mg/dL (1.6-2.6); Potassium 4.2 mmol/L (3.3-5.1); Sodium 142 mmol/L (135-145); Total Protein 6.8 g/dL (6.5-8.0)
--- NOTE | 2022-04-28 13:01 | ED.EXTPRO ---
HPI - Extremity Problem General Chief complaint: Extremity Injury, Lower Stated complaint: L foot and leg pain Time Seen by Provider: 04/28/22 10:05 Source: patient Mode of arrival: ambulatory Limitations: no limitations History of Present Illness HPI Narrative: 66yoF who is presenting to the ER with complaints of left foot/ankle pain that has been present intermittently since 2020. Reports that in the past she has had some wounds where she had to take antibiotics although does wounds have resolved. She does know some mild swelling and redness to bilateral lower extremities that she believes are chronic in nature since 2020. She reports that she does walk everywhere she denies being homeless. She appears to be pushing a large cart with multiple bags on it. She reports that she wears flip-flops and she does not really have other shoes and she only has 1 pair of socks. She denies any fevers, change in vision, dizziness or chest pain, shortness of breath, dyspnea on exertion, orthopnea, palpitations, paresthesias, recent falls or trauma or any other symptoms complaints or concerns at this time. MD Complaint: extremity pain and extremity swelling Onset (ago): year(s) (2 years worse in the past few days ) Pain Consistency: constant Location: left and lower extremity Quality: aching Radiation: none Relieving factors: nothing Exacerbating factors: range of motion, weight bearing, walking and palpation Associated symptoms: denies other symptoms Related Data Previous Rx's Medication Instructions Recorded doxycycline monohydrate 100 mg 100 mg PO BID #21 tabs 06/03/20 tablet doxycycline hyclate 100 mg capsule 100 mg PO BID cough 10 days #20 10/30/21 caps doxycycline hyclate 100 mg capsule 100 mg PO BID cough 7 days #14 caps 10/30/21 Allergies Allergy/AdvReac Type Severity Reaction Status Date / Time Sulfa (Sulfonamide AdvReac Intermediate Agitated Verified 06/03/20 11:35 Antibiotics) Review of Systems Review of Systems: Constitutional : No Weight loss, No Fever, No Chills, No Night Sweats, No Fatigue, No Malaise ENT/Mouth : No Hearing loss, No Ear Pain, No Nasal Congestion, No Sinus Pain, No Hoarseness, No sore throat, No Rhinorrhea, No Swallowing Difficulty Eyes: No Eye Pain, No Swelling, No Redness, No Foreign Body, No Discharge, No Vision Changes Cardiovascular : No Chest Pain, No SOB, No Dyspnea on Exertion, No Orthopnea, No Edema, No Palpitations Respiratory : No Cough, No Sputum, No Wheezing, No Smoke Exposure, No Dyspnea Gastrointestinal : No Nausea, No Vomiting, No Diarrhea, No Constipation, No abdominal Pain, No Hematochezia, No Melena Genitourinary : no irregular bleeding, No Dysuria, No Urinary Frequency, No Hematuria, No Urinary Incontinence, No Urgency, No Flank Pain, No Urinary Flow Changes, No Hesitancy Musculoskeletal : + left foot/ankle joint pain/swelling, No Myalgias Skin : No Skin Lesions, No rash Neuro : No Weakness, No Numbness, No Paresthesias, No Loss of Consciousness, No Dizziness, No Headache Psych : No Anxiety/Panic, No Depression, No SI/HI/AH/VH, No Social Issues, Heme/Lymph: No Bruising, No Bleeding,No Lymphadenopathy Endocrine : No Polyuria, No Polydipsia, No Temperature Intolerance Yes all other systems are reviewed and are negative [facility] Past Medical History Attestation statement: The following information was validated with the patient. Source: old records reviewed and nursing notes reviewed Social History Social History Alcohol intake: never Advance Directives: No Advance Directives Information Provided: Yes Physical Exam Vital Signs: Vital Signs: Last Vital Signs Temp 97.5 F 04/28/22 09:58 Pulse 89 04/28/22 09:58 Resp 16 04/28/22 09:58 BP 144/66 H 04/28/22 09:58 Pulse Ox 93 04/28/22 09:58 O2 Del Method 04/28/22 09:58 BMI result Body Mass Index 27.3 Vital signs reviewed. Blood pressure normal. Pulse normal. Respiration normal. Oxygen normal. Temperature normal. Appearance: Alert. Oriented X3. No acute distress. Head: Normal external exam. Normocephalic. Atraumatic. Eyes: PERRLA. EOMI. Conjunctiva and sclera normal. Eyelids normal. ENT: EAC normal. TM's Normal. Pharynx normal. Uvula midline. Moist mucous membranes. No lesions/ulcerations or masses noted on the tongue. Normal voice. No trismus noted. No drooling noted. No muffled voice noted. Neck: Normal inspection. Neck supple. FROM. No adenopathy. Thyroid Normal. No meningeal signs. CVS: Normal heart rate and rhythm. Heart sound normal. Pulses normal throughout. No murmurs/rales/gallops. Respiratory: No respiratory distress. Painless inspiration. Breath sounds normal. No wheezes/rales/rhonchi noted. Chest nontender. No accessory muscle usage noted or decreased air movement noted. Abdomen: Soft and nontender. Back: Full range of motion noted. Nontender. Skin: Skin warm and dry. Normal skin color. Normal skin turgor. To bilateral lower extremity patient has bilateral Hemosiderin staining. No additional rashes/lesions/lacerations noted. Extremities: Patient with bilateral lower extremity edema. No pitting is noted. She is noted to have bilateral calf tenderness. She is noted to have tenderness palpation to the 5th metatarsal of the left foot and anterior aspect of the left foot/ankle. She has full range of motion of the left knee/ankle/foot joint. No obvious ligamentous or tendon injury noted. Otherwise all other Extremities exhibit normal range of motion and nontender. Neuro: Oriented X 3. No motor deficit. No sensory deficit. Reflexes normal. Normal steady gait. No focal neuro deficits noted. CN's II-XII intact bilaterally? Vascular: + radial pulses/+2 radial pedal pulses. Normal cap refill. No cyanosis noted to upper extremity nails or toenails Course Course Course Narrative: 66-year-old female presenting to the ER with complaints of left foot/ankle pain that has been present intermittently since 2020. Reports she had wounds in the past that have resolved after taking antibiotics. She reports that she has chronic redness and swelling to her lower extremities since 2020. She reports she walks everywhere is not homeless although carries a large cart with multiple shopping bags on it. She is wearing flip-flops. Only has 1 pair of socks. Is noted to have positive distal pedal pulses. No cyanosis noted to toenails. Full range of motion of all extremities. Mild tenderness to the 5th metatarsal and anterior/lateral aspect of the left foot and ankle joint. No obvious ligamentous or tendon injury noted. Achilles tendon is intact. She does have lower extremity edema and bilateral calf tenderness. No pitting edema is noted. Appears very disheveled. She denies any chest pain or shortness of breath, dyspnea on exertion orthopnea or palpitations or any cardio/pulmonary complaints. Labs were obtained and all labs are within normal limits. Venous duplex ultrasound of bilateral lower extremity negative for any DVTs or any other acute processes. Left foot/ankle x-ray revealed possible linear lucency in the medial malleolus which represents a possible acute nondisplaced fracture. Otherwise no other acute processes noted. Therefore I discussed this case with orthopedic physician purchasing administrative assistant Rufina who recommended a ortho boot. Patient can follow-up as an outpatient. Will DC home with symptomatic treatment instructions to follow-up with PCP/orthopedic and to return if any new or worsening symptoms. Patient understands agrees with this plan. Medical Decision Making Consult Healthcare Provider Management of the patient was discussed with: Vehicle Insurance Agent (Orthopedic physician purchasing administrative assistant about the patient's possible fracture to the medial malleolus he recommended placing her in an ortho boot) Lab Data 04/28/22 12:29 04/28/22 12:29 Labs: Lab Results 04/28/22 04/28/22 04/28/22 Range/Units 12:29 12:29 12:29 WBC 8.8 (4.8-10.8) X10*3/uL RBC 4.89 (4.20-5.50) X10*6/uL Hgb 14.0 (12.0-16.0) g/dl Hct 43.1 (37.0-47.0) % MCV 88.1 (80.0-98.0) fL MCH 28.6 (27.0-33.0) pg MCHC 32.5 (31.0-35.0) g/dl RDW 15.2 (11.0-16.0) % Plt Count 259 (160-400) X10*3/uL MPV 9.0 L (9.4-12.3) fL Immature Gran % (Auto) 0.2 (0.0-0.4) % Neut % (Auto) 71.1 (45-73) % Lymph % (Auto) 20.5 (20-40) % [place] % (Auto) 5.0 (2-11) % Eos % (Auto) 2.3 (0-4) % Baso % (Auto) 0.9 (0-2) % Lymph # (Auto) 1.8 (1.2-4.9) X10*3/uL [place] # (Auto) 0.4 (0.1-1.2) X10*3/uL Eos # (Auto) 0.2 (0.0-0.4) X10*3/uL Baso # (Auto) 0.1 (0.0-0.2) X10*3/uL Abs Immat Gran (auto) 0.02 (0.00-0.03) X10*3/uL Absolute Neuts (auto) 6.3 (2.0-8.3) x10*3/uL Absolute Nucleated RBC 0.000 (0.0-0.012) X10*3/uL Nucleated RBC % (auto) 0.0 (0.0-0.2) /100WBC PT 11.1 (10.0-13.1) SEC INR 1.0 (0.9-1.1) Sodium 142 (135-145) mmol/L Potassium 4.2 (3.3-5.1) mmol/L Chloride 107 (96-108) mmol/L Carbon Dioxide 26 (22-29) mmol/L Anion Gap 13 (12-20) BUN 11 (9-16) mg/dL Creatinine 0.80 (0.5-1.4) mg/dL Estim Creat Clear Calc 77.5 Estimated GFR > 60 Random Glucose 96 (60-115) mg/dL Uric Acid (2.4-5.7) mg/dL Calcium 9.0 (8.4-10.2) mg/dL Magnesium 2.4 (1.6-2.6) mg/dL Total Bilirubin 0.6 (0.0-1.0) mg/dL AST 21 (5-31) U/L ALT 20 (0-31) U/L Alkaline Phosphatase 67 (39-117) U/L C-Reactive Protein (< or = 0.50) mg/dL Total Protein 6.8 (6.5-8.0) g/dL Albumin 4.3 (3.5-5.0) g/dL 04/28/22 Range/Units 12:29 WBC (4.8-10.8) X10*3/uL RBC (4.20-5.50) X10*6/uL Hgb (12.0-16.0) g/dl Hct (37.0-47.0) % MCV (80.0-98.0) fL MCH (27.0-33.0) pg MCHC (31.0-35.0) g/dl RDW (11.0-16.0) % Plt Count (160-400) X10*3/uL MPV (9.4-12.3) fL Immature Gran % (Auto) (0.0-0.4) % Neut % (Auto) (45-73) % Lymph % (Auto) (20-40) % [place] % (Auto) (2-11) % Eos % (Auto) (0-4) % Baso % (Auto) (0-2) % Lymph # (Auto) (1.2-4.9) X10*3/uL [place] # (Auto) (0.1-1.2) X10*3/uL Eos # (Auto) (0.0-0.4) X10*3/uL Baso # (Auto) (0.0-0.2) X10*3/uL Abs Immat Gran (auto) (0.00-0.03) X10*3/uL Absolute Neuts (auto) (2.0-8.3) x10*3/uL Absolute Nucleated RBC (0.0-0.012) X10*3/uL Nucleated RBC % (auto) (0.0-0.2) /100WBC PT (10.0-13.1) SEC INR (0.9-1.1) Sodium (135-145) mmol/L Potassium (3.3-5.1) mmol/L Chloride (96-108) mmol/L Carbon Dioxide (22-29) mmol/L Anion Gap (12-20) BUN (9-16) mg/dL Creatinine (0.5-1.4) mg/dL Estim Creat Clear Calc Estimated GFR Random Glucose (60-115) mg/dL Uric Acid 4.7 (2.4-5.7) mg/dL Calcium (8.4-10.2) mg/dL Magnesium (1.6-2.6) mg/dL Total Bilirubin (0.0-1.0) mg/dL AST (5-31) U/L ALT (0-31) U/L Alkaline Phosphatase (39-117) U/L C-Reactive Protein 1.01 H (< or = 0.50) mg/dL Total Protein (6.5-8.0) g/dL Albumin (3.5-5.0) g/dL Independent Interpretation I performed an independent interpretation of an: Plain X-Ray (X-ray of left foot and ankle reviewed by myself agreeable with radiologist report) and Ultrasound (Ultrasound of bilateral lower extremities reviewed by myself and agree with radiologist's report) Radiology Impression Discussion of test interpretation with radiology: I have reviewed the radiologist's reading. Radiologist Impression: FINDINGS: A subtle linear lucency is seen in the medial malleolus. The lateral malleolus appears intact. The tibiotalar joint space is unremarkable. The tarsal bones are normally aligned. There is a small plantar calcaneal spur. The metatarsals and phalanges are unremarkable. Mild to moderate soft tissue swelling is seen most pronounced surrounding the ankle.? XR/XR foot LT min 3V IMPRESSION: Subtle linear lucency in the medial malleolus could represent an acute nondisplaced fracture. Correlate with physical exam.? FINDINGS: RIGHT: There is normal venous compression and respiratory variation and augmented flow. The visualized common femoral vein, superficial femoral vein, profunda femoral vein, popliteal vein, and the trifurcation region shows no evidence of deep venous thrombosis. ? There is no significant popliteal fossa cyst. LEFT: There is normal venous compression and respiratory variation and augmented flow. The visualized common femoral vein, superficial femoral vein, profunda femoral vein, popliteal vein, and the trifurcation region shows no evidence of deep venous thrombosis. ? There is no significant popliteal fossa cyst. If the patient's symptoms persist, followup ultrasound in 5 days 7 days might be of value to exclude proximal propagation from a non-visualized calf vein. US/US venous duplex LE BI IMPRESSION: No DVT demonstrated in the bilateral lower extremities. Prescription Management I considered prescription management with: Pain Medication Procedures Orthopedic Splinting/Casting Injury #1: Side: left Lower Extremity Injury Location: ankle and foot Lower Extremity Immobilizer: boot orthosis Discharge Plan Discharge Clinical Impression: Fracture of medial malleolus, Hemosiderin pigmentation of skin, Pedal edema Patient Disposition: Home, Self-Care Instructions: Ankle Fracture (ED), Leg Edema (ED) Prescriptions: No Action doxycycline monohydrate 100 mg tablet 100 mg PO BID Qty: 21 0RF doxycycline hyclate 100 mg capsule 100 mg PO BID 7 Days Qty: 14 0RF doxycycline hyclate 100 mg capsule 100 mg PO BID 10 Days Qty: 20 0RF Referrals: [facility] [place] [facility] [Provider Group] (Call to make a follow-up appointment as needed)
[2022-04-28 13:03] LABS: B Type Natriuretic Peptide 12 pg/mL (<100)
[2022-04-28 13:26] LABS: Erythrocyte Sedimentation Rate 7 MM/HR (0-20)
== END 2022-04-28 13:58 | disposition home or self-care (01) ==
PROVIDERS: Physician Assistant Medical; Emergency Provider Emergency Medicine
DX: S82.55XA Nondisplaced fracture of medial malleolus of left tibia, initial encounter for closed fracture (principal); X58.XXXA Exposure to other specified factors, initial encounter; L81.8 Other specified disorders of pigmentation; R60.0 Localized edema; M79.605 Pain in left leg; M79.604 Pain in right leg; Y93.01 Activity, walking, marching and hiking; Y92.480 Sidewalk as the place of occurrence of the external cause; Y99.9 Unspecified external cause status
CPT/HCPCS: 36415; 73610; 73630; 80053; 83735; 83880; 84550; 85025; 85610; 85652; 86140; 93970; 99282; 99284

== ENCOUNTER 2022-09-04 14:32 | Inpatient (IN) | payer MEDICARE, SELFPAY ==
--- NOTE | ~2022-09-04 | US_ITS ---
EXAMINATION: US VENOUS ULTRASOUND WITH DOPPLER LOWER EXTREMITY, RIGHT CLINICAL INFORMATION: Swelling and redness COMPARISON: 04/28/2022 TECHNIQUE: Ultrasound of the deep veins is performed from the hip to the calf with compression sonography and color and pulse Doppler assessment. Spectral analysis with color-flow imaging is performed. FINDINGS: Per technologist report, patient ended the exam prior to all vessels being assessed. There is normal venous compression and respiratory variation and augmented flow in the interrogated common femoral vein, proximal superficial femoral vein, profunda femoral vein, and greater saphenous vein with no evidence of deep venous thrombosis. The mid to distal superficial femoral vein, popliteal vein, and calf veins were not evaluated on this exam. There is no significant popliteal fossa cyst. Few mildly prominent nonspecific inguinal lymph nodes are noted. If the patient's symptoms persist, followup ultrasound in 5 days 7 days might be of value to exclude proximal propagation from a non-visualized calf vein. US/US venous duplex LE RT IMPRESSION: No DVT demonstrated in the proximal right lower extremity thigh. However, the patient ended the exam before the remainder of the vessels could be evaluated, and therefore DVT in the mid to distal leg cannot be excluded.
--- NOTE | ~2022-09-04 | XR_ITS ---
EXAMINATION: XR TIBIA AND FIBULA, LEFT CLINICAL INFORMATION: Pain. Fall. COMPARISON: 04/28/2022 TECHNIQUE: AP and lateral views of the left tibia and fibula were obtained. FINDINGS: No fracture or cortical disruption. Appropriate alignment at the ankle and knee. No joint effusion at the knee. There is diffuse soft tissue swelling throughout the lower leg. XR/XR tibia fibula LT 2V IMPRESSION: Diffuse soft tissue swelling throughout the lower leg. No fracture or malalignment.
[2022-09-04 15:14] VITALS: BP 152/83; PULSE 103; RESP 18; TEMP 36.7; O2SAT 100; BMI 33.2
--- NOTE | 2022-09-04 15:14 | ED.GENADULT ---
HPI - General Adult General Chief complaint: Extremity Problem Stated complaint: recurring leg infection Time Seen by Provider: 09/04/22 23:55 Source: patient Mode of arrival: ambulatory Limitations: no limitations History of Present Illness HPI narrative: patient with chronic lymphedema with recurrent infection uncap patient stays on the street most of the times comes here for nonhealing wound on the left espinosa with increased swelling and discharge for last few weeks no fever no chills patient has not seen any PCP or to wound clinic for the same Related Data Previous Rx's Medication Instructions Recorded doxycycline monohydrate 100 mg 100 mg PO BID #21 tabs 06/03/20 tablet doxycycline hyclate 100 mg capsule 100 mg PO BID cough 10 days #20 10/30/21 caps doxycycline hyclate 100 mg capsule 100 mg PO BID cough 7 days #14 caps 10/30/21 Allergies Allergy/AdvReac Type Severity Reaction Status Date / Time Sulfa (Sulfonamide AdvReac Intermediate Agitated Verified 09/04/22 15:21 Antibiotics) Review of Systems Review of Systems: Yes all other systems are reviewed and are negative [facility] Social History Social History Household Members: None Housing: Apartment Do you presently have visiting nurse or other home services: No Alcohol intake: never Patient Tobacco Use Status: Never used Tobacco Smoked in Last 30 Days: No Use of substances other than those prescribed or required for medical reasons: No Have you been hit, kicked, punched, or otherwise hurt by someone within the past year? If so, by whom?: No Advance Directives: No Advance Directives Information Provided: Yes Do you have thoughts of harming others: None Do you have a plan to hurt others: No Plan Recently lost weight without trying: No Nutrition Risks: No Nutritional Risk, Dental problems and Difficulty chewing Patient : No Poor oral hygiene: Yes Physical Exam ED Vital Signs: Vital Signs - 24 hr 09/04/22 15:14 09/04/22 20:56 Temperature 98.1 F 98.7 F Pulse Rate 103 H 88 Respiratory Rate 18 16 Blood Pressure 152/83 H 128/74 Pulse Oximetry 100 98 Oxygen Delivery Method Room Air Room Air BMI result Body Mass Index 33.2 Appearance: Alert. Oriented X3. No acute distress.unkept condition Eyes: PERRLA, No Nystagmus ENT: Pharynx normal. Oral Mucosa moist Neck: Normal inspection. Neck supple. CVS: Normal heart rate and rhythm. Pulses normal. Respiratory: No respiratory distress. Equal air entry bilateral, no wheezing/rales/rhonchi Abdomen: Soft and nontender. Bowel sounds are present, no mass palpable, no CVA tenderness Skin: Skin warm and dry. cellulitic skin bilateral lower extremities with broken skin left leg Extremities: 3 + lower extremity edema. No calf tenderness Neuro: Oriented X 3. No motor deficit. No sensory deficit.No cerebellar signs , cranial nerves II-XII intact Course Course Course Narrative: RME performed by Clair Jefrfey PA-C. Patient is a 67 year old assigned female at presenting to the emergency department with left leg pain. Labs and imaging order ordered. Patient placed back in the waiting room pending room availability and results. Medications Administered Generic Name Dose Route Start Last Admin Trade Name Freq PRN Reason Stop Dose Admin Enoxaparin Sodium 40 mg 09/05/22 01:00 09/05/22 01:28 Enoxaparin Sodium 40 Mg/0.4 Ml Syringe SUBCUT Not Given Q24H LINA Discontinued Medications Generic Name Dose Route Start Last Admin Trade Name Freq PRN Reason Stop Dose Admin Sodium Chloride 1,000 mls @ 999 mls/hr 09/05/22 00:10 09/05/22 03:20 Ns IV 09/05/22 01:10 Infused .Q1H1M ONE Infusion Vancomycin HCl 2,000 mg in 500 mls @ 250 mls/hr 09/05/22 01:00 09/05/22 04:14 Vancomycin/Ns IV 09/05/22 02:59 Infused ONCE ONE Infusion Piperacillin Sod/Tazobactam 50 mls @ 100 mls/hr 09/05/22 00:10 09/05/22 01:27 Sod 3.375 gm/ Sodium Chloride IV 09/05/22 00:39 Infused ONCE ONE Infusion Medical Decision Making Medical Decision Making [facility] Narrative: patient lymphedema with nonhealing wounds of both lower extremities will admit patient for IV antibiotics wound care and possible placement Lab Data [facility] Lab Attestation statement: I reviewed the patient's lab results. 09/04/22 17:28 09/04/22 17:28 Labs: Lab Results 09/04/22 09/04/22 09/04/22 Range/Units 17:28 17:28 17:28 WBC 9.6 (4.8-10.8) X10*3/uL RBC 4.83 (4.20-5.50) X10*6/uL Hgb 13.4 (12.0-16.0) g/dl Hct 43.0 (37.0-47.0) % MCV 89.0 (80.0-98.0) fL MCH 27.7 (27.0-33.0) pg MCHC 31.2 (31.0-35.0) g/dl RDW 13.2 (11.0-16.0) % Plt Count 242 (160-400) X10*3/uL MPV 8.9 L (9.4-12.3) fL Immature Gran % (Auto) 0.3 (0.0-0.4) % Neut % (Auto) 77.3 H (45-73) % Lymph % (Auto) 13.4 L (20-40) % [place] % (Auto) 6.4 (2-11) % Eos % (Auto) 2.0 (0-4) % Baso % (Auto) 0.6 (0-2) % Lymph # (Auto) 1.3 (1.2-4.9) X10*3/uL [place] # (Auto) 0.6 (0.1-1.2) X10*3/uL Eos # (Auto) 0.2 (0.0-0.4) X10*3/uL Baso # (Auto) 0.1 (0.0-0.2) X10*3/uL Abs Immat Gran (auto) 0.03 (0.00-0.03) X10*3/uL Absolute Neuts (auto) 7.4 (2.0-8.3) x10*3/uL Absolute Nucleated RBC 0.000 (0.0-0.012) X10*3/uL Nucleated RBC % (auto) 0.0 (0.0-0.2) /100WBC ESR 7 (0-20) MM/HR Sodium 136 (135-145) mmol/L Potassium 3.8 (3.3-5.1) mmol/L Chloride 103 (96-108) mmol/L Carbon Dioxide 24 (22-29) mmol/L Anion Gap 13 (12-20) BUN 15 (9-16) mg/dL Creatinine 0.88 (0.5-1.4) mg/dL Estim Creat Clear Calc 76.2 Estimated GFR > 60 Random Glucose 106 (60-115) mg/dL Lactic Acid (0.5-2.0) mmol/L Lactic Acid F/U @ 2Hr (0.5-2.0) mmol/L Calcium 9.3 (8.4-10.2) mg/dL Magnesium 2.4 (1.6-2.6) mg/dL Total Bilirubin 0.4 (0.0-1.0) mg/dL AST 13 (5-31) U/L ALT 13 (0-31) U/L Alkaline Phosphatase 71 (39-117) U/L C-Reactive Protein 1.27 H (< or = 0.50) mg/dL Total Protein 6.9 (6.5-8.0) g/dL Albumin 4.1 (3.5-5.0) g/dL 09/04/22 09/04/22 Range/Units 17:28 20:59 WBC (4.8-10.8) X10*3/uL RBC (4.20-5.50) X10*6/uL Hgb (12.0-16.0) g/dl Hct (37.0-47.0) % MCV (80.0-98.0) fL MCH (27.0-33.0) pg MCHC (31.0-35.0) g/dl RDW (11.0-16.0) % Plt Count (160-400) X10*3/uL MPV (9.4-12.3) fL Immature Gran % (Auto) (0.0-0.4) % Neut % (Auto) (45-73) % Lymph % (Auto) (20-40) % [place] % (Auto) (2-11) % Eos % (Auto) (0-4) % Baso % (Auto) (0-2) % Lymph # (Auto) (1.2-4.9) X10*3/uL [place] # (Auto) (0.1-1.2) X10*3/uL Eos # (Auto) (0.0-0.4) X10*3/uL Baso # (Auto) (0.0-0.2) X10*3/uL Abs Immat Gran (auto) (0.00-0.03) X10*3/uL Absolute Neuts (auto) (2.0-8.3) x10*3/uL Absolute Nucleated RBC (0.0-0.012) X10*3/uL Nucleated RBC % (auto) (0.0-0.2) /100WBC ESR (0-20) MM/HR Sodium (135-145) mmol/L Potassium (3.3-5.1) mmol/L Chloride (96-108) mmol/L Carbon Dioxide (22-29) mmol/L Anion Gap (12-20) BUN (9-16) mg/dL Creatinine (0.5-1.4) mg/dL Estim Creat Clear Calc Estimated GFR Random Glucose (60-115) mg/dL Lactic Acid 2.3 H* (0.5-2.0) mmol/L Lactic Acid F/U @ 2Hr 1.5 (0.5-2.0) mmol/L Calcium (8.4-10.2) mg/dL Magnesium (1.6-2.6) mg/dL Total Bilirubin (0.0-1.0) mg/dL AST (5-31) U/L ALT (0-31) U/L Alkaline Phosphatase (39-117) U/L C-Reactive Protein (< or = 0.50) mg/dL Total Protein (6.5-8.0) g/dL Albumin (3.5-5.0) g/dL Discharge Plan Discharge Clinical Impression: Cellulitis, Lower extremity edema Patient Disposition: Admitted As Inpatient Interventions: Admission Worksheet (ED) Last Done: 09/05/22 03:38 Discharge Date/Time: 09/05/22 03:50
[2022-09-04 17:38] LABS: MANUAL DIFF FLAG NO
[2022-09-04 17:51] LABS: Basophils Absolute Auto 0.1 X10*3/uL (0.0-0.2); Basophils Percent Auto 0.6 % (0-2); Eosinophils Absolute Auto 0.2 X10*3/uL (0.0-0.4); Hemoglobin 13.4 g/dl (12.0-16.0); Imm Gran Abs Auto 0.03 X10*3/uL (0.00-0.03); Imm Gran Pct Auto 0.3 % (0.0-0.4); Lymphocytes Absolute Auto 1.3 X10*3/uL (1.2-4.9); Lymphocytes Percent Auto 13.4 % (20-40); Mean Corpuscular HGB Conc 31.2 g/dl (31.0-35.0); Mean Corpuscular Hemoglobin 27.7 pg (27.0-33.0); Mean Platelet Volume 8.9 fL (9.4-12.3); Monocytes Absolute Auto 0.6 X10*3/uL (0.1-1.2); Monocytes Percent Auto 6.4 % (2-11); Neutrophils Absolute Auto 7.4 x10*3/uL (2.0-8.3); Neutrophils Percent Auto 77.3 % (45-73); Platelet Count 242 X10*3/uL (160-400); Red Blood Count 4.83 X10*6/uL (4.20-5.50); Red Cell Distribution Width 13.2 % (11.0-16.0); White Blood Count 9.6 X10*3/uL (4.8-10.8)
[2022-09-04 18:07] LABS: Alanine Aminotransferase 13 U/L (0-31); Albumin Level 4.1 g/dL (3.5-5.0); Alkaline Phosphatase 71 U/L (39-117); Anion Gap 13 (12-20); Aspartate Amino Transferase 13 U/L (5-31); Bilirubin Total 0.4 mg/dL (0.0-1.0); Blood Urea Nitrogen 15 mg/dL (9-16); C Reactive Protein 1.27 mg/dL (< or = 0.50); Calcium 9.3 mg/dL (8.4-10.2); Carbon Dioxide 24 mmol/L (22-29); Chloride 103 mmol/L (96-108); Creatinine Clr Calc Pharmacy 76.2; Estimated Glomerular Filt Rate > 60; Glucose Random 106 mg/dL (60-115); Lactic Acid 2.3 mmol/L (0.5-2.0); Magnesium 2.4 mg/dL (1.6-2.6); Potassium 3.8 mmol/L (3.3-5.1); Sodium 136 mmol/L (135-145); Total Protein 6.9 g/dL (6.5-8.0)
[2022-09-04 19:33] LABS: Reflex Lactate? Lactic Acid Added
[2022-09-04 20:56] VITALS: BP 128/74; PULSE 88; RESP 16; TEMP 37.1; O2SAT 98
--- NOTE | 2022-09-04 21:01 | MHC.EDTECH ---
PATIENT 2ND LACTIC ACID DRAWN AND SENT TO LAB ,VITALS SIGN RE CHECK PATIENT BACK IN WAITING ROOM .
[2022-09-04 21:14] LABS: ~Lactic Acid-LAB USE ONLY 1.5 mmol/L (0.5-2.0)
[2022-09-04 21:45] LABS: Erythrocyte Sedimentation Rate 7 MM/HR (0-20)
--- OUTSIDE RECORDS SUMMARY | 2022-09-04 23:37 | XMS_ITS | Continuity of Care Document ---
Author Name Unknown Organization [facility] Address [address] [place] [id number] Care Team Providers Care Mathematical Engineering Technician Name Role Phone Not on Staff, PCP Primary Care Physician Unavail able Encounter [facility] Date(s): 07/07/22 - 08/06/22 [facility]/[address] [id number] [place] Allergies, Adverse Reactions, Alerts Substance Reaction Severity Status doxycycline Nausea Active Lactose Active Problem List Condition Confirmation Course Effective Dates Status H ealth Status Informant Cholecystectomy Confirmed Active Chronic schizophrenia Confirmed Active Dental caries Confirmed 05/28/08 Active Homeless Confirmed Active Obese class II Confirmed Active Social History Social History Type Response Smoking Status Never smoker entered on: 06/11/16 Sex Patient Care team information Care Team Personnel Name: Not on Staff, PCP Position: S Physician (General Medicine) Member Role: PCP Care Team Related Persons Name: AUNDREA MCCOY Address: home [address] [place] [address]
--- NOTE | 2022-09-04 23:41 | PC.NURSE ---
Pt presents to ER with complaints of leg swelling, redness, and pain. Pt presents A&Ox4, GCS 15, with warm, dry skin. Pt states she noticed the swelling a few weeks ago but pushed off getting them looked at. Now, both legs are swollen, red, and painful with dryness and cracking. Pt states she tripped while getting into a car, and skinned her espinosa. A blister was split open. Site is raw and draining, leaving her pant leg soiled. CSM in tact bilaterally. Pt waiting ED provider at this time.
--- NOTE | 2022-09-05 00:49 | PM.IMHP ---
History of Present Illness Date of Service: 09/05/22 Chief Complaint: Leg infection This is a 67-year-old female with pertinent medical history of venous stasis, not on prescription medications who presents to the emergency department for evaluation of leg infection. Patient states that she has had intermittent leg infections since February 2020. Patient states that her left leg has been draining purulent fluid, unspecified duration. Admits chills but denies fever. Patient denies any known past medical history and states she has never taken any prescription medications. No chest discomfort, palpitations, shortness of breath, abdominal pain, changes in urinary or bowel habits. In the emergency department, left lower extremity with extensive purulent cellulitis. Review of Systems Constitutional: Constitutional: Reports chills and Reports fatigue Cardiovascular: Cardiovascular: Reports no additional cardiovascular complaints Respiratory: Respiratory: Reports no additional respiratory complaints Gastrointestinal: Gastrointestinal: Reports no additional gastrointestinal complaints Genitourinary: Genitourinary: Reports no additional female genitourinary complaints Endocrine: Endocrine: Reports fatigue PMFSH Pertinent family history: No family history of early CAD Social History Alcohol intake: never Smoked in Last 30 Days: No Use of substances other than those prescribed or required for medical reasons: No Advance Directives: No Advance Directives Information Provided: Yes Meds Allergies Allergy/AdvReac Type Severity Reaction Status Date / Time Sulfa (Sulfonamide AdvReac Intermediate Agitated Verified 09/04/22 15:21 Antibiotics) Active Medications: Current Medications Sodium Chloride (Ns) 1,000 mls @ 999 mls/hr IV .Q1H1M ONE Stop: 09/05/22 01:10 Vancomycin HCl (Vancomycin/Ns) 2,000 mg in 500 mls @ 250 mls/hr IV ONCE ONE Stop: 09/05/22 02:59 Pharmacy Consult (Consult Rx Vancomycin Dosing) 1 each MISCELLANE DAILY PRN PRN Reason: Consult order Pharmacy Consult (Consult Rx Perform Med Rec) 1 each MISCELLANE ONCE PRN PRN Reason: Consult order Physical Exam Vital Signs and Narrative: Vital Signs: Last Vital Signs Temp 98.7 F 09/04/22 20:56 Pulse 88 09/04/22 20:56 Resp 16 09/04/22 20:56 BP 128/74 09/04/22 20:56 Pulse Ox 98 09/04/22 20:56 O2 Del Method Room Air 09/04/22 20:56 BMI result Body Mass Index 33.2 Middle-aged disheveled female lying in bed in no distress, Neck supple, no JVD Regular rate and rhythm, S1-S2 heard Regular breath sounds bilaterally, no wheezing or crackles appreciated Abdomen soft nontender, no guarding, no rigidity Patient is awake, alert and oriented to self, place, time and person ; no focal motor deficit Extremity: Bilateral lower extremity with venous stasis changes, left lower extremity with erythema, warmth and serosanguineous drainage Psych: Normal mood No pedal edema Results Labs 09/04/22 17:28 09/04/22 17:28 Labs: Laboratory Results - last 24 hr 09/04/22 09/04/22 09/04/22 17:28 17:28 17:28 MCV 89.0 MCH 27.7 MCHC 31.2 RDW 13.2 Plt Count 242 MPV 8.9 L Immature Gran % (Auto) 0.3 Neut % (Auto) 77.3 H Lymph % (Auto) 13.4 L [place] % (Auto) 6.4 Eos % (Auto) 2.0 Baso % (Auto) 0.6 Lymph # (Auto) 1.3 [place] # (Auto) 0.6 Eos # (Auto) 0.2 Baso # (Auto) 0.1 Abs Immat Gran (auto) 0.03 Absolute Neuts (auto) 7.4 Absolute Nucleated RBC 0.000 Nucleated RBC % (auto) 0.0 ESR 7 Anion Gap 13 Estim Creat Clear Calc 76.2 Estimated GFR > 60 Random Glucose 106 Lactic Acid Lactic Acid F/U @ 2Hr Calcium 9.3 Magnesium 2.4 Total Bilirubin 0.4 AST 13 ALT 13 Alkaline Phosphatase 71 C-Reactive Protein 1.27 H Total Protein 6.9 Albumin 4.1 09/04/22 09/04/22 17:28 20:59 MCV MCH MCHC RDW Plt Count MPV Immature Gran % (Auto) Neut % (Auto) Lymph % (Auto) [place] % (Auto) Eos % (Auto) Baso % (Auto) Lymph # (Auto) [place] # (Auto) Eos # (Auto) Baso # (Auto) Abs Immat Gran (auto) Absolute Neuts (auto) Absolute Nucleated RBC Nucleated RBC % (auto) ESR Anion Gap Estim Creat Clear Calc Estimated GFR Random Glucose Lactic Acid 2.3 H* Lactic Acid F/U @ 2Hr 1.5 Calcium Magnesium Total Bilirubin AST ALT Alkaline Phosphatase C-Reactive Protein Total Protein Albumin Imaging Radiologist's Impressions: Impressions Tibia/Fibula X-Ray 09/04/22 15:53 IMPRESSION: Diffuse soft tissue swelling throughout the lower leg. No fracture or malalignment. Assessment and Plan (1) Cellulitis: Status: Acute Plan This is a 67-year-old female with pertinent medical history of venous stasis, not on prescription medications who presents to the emergency department for evaluation of leg infection. #. Purulent cellulitis of lower extremity. Will admit patient due to extensive cellulitis. Initiating empiric IV antibiotics. Blood culture pending. Consulting Wound Care. Obtaining venous duplex ultrasound #. Poor living condition. 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 Quality Stroke Does the patient have a stroke diagnosis?: No VTE Prior VTE?: No VTE Risk Level:: Medical - moderate - high VTE Device Contraindication: Treatment Not Indicated VTE Drug Contraindication: N/A - Med Ordered
[2022-09-05] MEDS: Piperacillin Sodium/Tazobactam 3.375 GM in 0.9 % Sodium Chloride 50 ML IV (00:53)
[2022-09-05] MEDS: 0.9 % Sodium Chloride 1,000 ML 999 ML IV (00:53)
--- NOTE | 2022-09-05 00:59 | PC.NURSE ---
KOREY Perdomo placed a 22g IV in the left forearm. Pt has fluids and antibiotics running through the IV at this time. Pt reports that her apartment is very hot and pt does not have help to install her air conditioner so she has not been living at home. Pt requested to talk to case management. Hospitalist aware.
[2022-09-05] MEDS: vancomycin/NS 2,000 MG/500 ML PLAST..BAG 250 MG IV (01:19)
--- NOTE | 2022-09-05 01:28 | PC.NURSE ---
Pt ambulated with a walker to the bathroom. Pt refused lovenox injection.
--- NOTE | 2022-09-05 01:33 | PC.NURSE ---
Belongings list complere
--- NOTE | 2022-09-05 01:52 | PC.NURSE ---
Pt ambulated to the bathroom with a walker. Pt is requesting hot water for instant coffee and ramen noodles. Pt insists she has to eat prior to getting an ultrasound, it was explained that she needs to get the ultrasound first, pt said okay but is still arguing slightly. Pt has a room upstairs, she will get utrasound then go upstairs.
[2022-09-05 04:00] VITALS: BP 137/69; PULSE 88; RESP 18; TEMP 36.6; O2SAT 98
[2022-09-05 04:06] VITALS: BMI 32.7
--- NOTE | 2022-09-05 07:51 | PHA.PROG ---
Admission Date/Time: September 05, 2022 00:48 Indication: Skin Weight in k.7 kg Adjusted body weight in Kg: [place] body weight in Kg: Obesity Dosing Indication % IBW: Serum Creatinine - Last 168 Hours 09/04/22 17:28 Creatinine 0.88 Estimated CrCl and GFR - Last 168 Hours 09/04/22 17:28 Estim Creat Clear Calc 76.2 Estimated GFR > 60 Vancomycin Loading Dose: 2000mg x 1 Current Vancomycin Dosing Regimen: 1000mg Q12H Vancomycin Monitoring using AUC goal of 400 - 600 range with trough as surrogate marker: 522mg/L Date and Time for next Vancomycin Level to be drawn: 09/06/22 @1100 Pharmacist Comments on Vancomycin Plan: Will continue to monitor renal function; predicted trough of 17.3mg/L. 750mg Q12H had a subtherapeutic AUC prediction of 396mg/L. Will adjust accordingly Vancomycin dosing will take advantage of [employer] as a clinical decision support tool that uses Bayesian modeling to calculate individual patient's pharmacokinetic parameters and forecast the patient's drug concentration time course with the target goal AUC 24 range of 400 - 600 mg/L/hr.
[2022-09-05 08:00] VITALS: BP 140/70; PULSE 82; RESP 18; TEMP 36.2; O2SAT 98
--- NOTE | 2022-09-05 08:32 | PHA.MEDREC ---
Pharmacy Consult ? Medication Reconciliation Pharmacy has completed the medication reconciliation. Spoke with patient. She does not take any medications.
[2022-09-05 08:51] LABS: MANUAL DIFF FLAG NO
[2022-09-05 08:56] LABS: Basophils Absolute Auto 0.1 X10*3/uL (0.0-0.2); Basophils Percent Auto 0.9 % (0-2); Eosinophils Absolute Auto 0.2 X10*3/uL (0.0-0.4); Eosinophils Percent Auto 3.3 % (0-4); Hematocrit 41.4 % (37.0-47.0); Hemoglobin 13.4 g/dl (12.0-16.0); Imm Gran Abs Auto 0.02 X10*3/uL (0.00-0.03); Imm Gran Pct Auto 0.3 % (0.0-0.4); Lymphocytes Percent Auto 15.3 % (20-40); Mean Corpuscular HGB Conc 32.4 g/dl (31.0-35.0); Mean Corpuscular Hemoglobin 28.5 pg (27.0-33.0); Mean Corpuscular Volume 88.1 fL (80.0-98.0); Mean Platelet Volume 9.3 fL (9.4-12.3); Monocytes Absolute Auto 0.6 X10*3/uL (0.1-1.2); Monocytes Percent Auto 9.3 % (2-11); Neutrophils Absolute Auto 4.7 x10*3/uL (2.0-8.3); Neutrophils Percent Auto 70.9 % (45-73); Platelet Count 226 X10*3/uL (160-400); Red Cell Distribution Width 13.4 % (11.0-16.0); White Blood Count 6.7 X10*3/uL (4.8-10.8)
[2022-09-05] MEDS: 0.9 % Sodium Chloride Flush 3 ML SYRINGE IVFLUSH (09:08)
[2022-09-05 09:11] LABS: Anion Gap 9 (12-20); Blood Urea Nitrogen 10 mg/dL (9-16); Calcium 8.5 mg/dL (8.4-10.2); Carbon Dioxide 25 mmol/L (22-29); Chloride 110 mmol/L (96-108); Creatinine Clr Calc Pharmacy 90.1; Estimated Glomerular Filt Rate > 60; Glucose Random 93 mg/dL (60-115); Potassium 3.6 mmol/L (3.3-5.1); Sodium 140 mmol/L (135-145)
[2022-09-05 09:12] LABS: Creatinine Clr Calc Pharmacy 90.1; Estimated Glomerular Filt Rate > 60
--- NOTE | 2022-09-05 10:32 | P.CONGS_ITS ---
History of Present Illness Consult details Consult date: 09/05/22 Narrative: 67F admitted for a leg wound. She has had a history of recurrent leg infections, left leg more than the right since 2020. She says she has had worsening redness, discomfort on an wound on the left anterior lower leg with drainage. She apparently has chronic leg edema with venous stasis and states she is being seen by multiple doctors in [place] for this. Review of Systems Constitutional: Constitutional: Denies chills and Denies fever(s) Cardiovascular: Cardiovascular: Denies chest pain and Denies dyspnea Respiratory: Respiratory: Denies cough and Denies dyspnea Gastrointestinal: Gastrointestinal: Denies hematochezia and Denies change in bowel habits Genitourinary: Genitourinary: Denies hematuria Musculoskeletal: Musculoskeletal: Reports abnormal gait, Denies back pain and Denies limited range of motion Neurologic: Reports abnormal gait, Denies focal weakness and Denies convulsions Psychiatric: Psychiatric: Denies depression and Denies mood swings PMFSH Past Medical History Medical History (Updated 09/05/22 @ 10:37 by Cedrick Cole MD) Stasis dermatitis of both legs Social History Social History Household Members: None Housing: Apartment Do you presently have visiting nurse or other home services: No Alcohol intake: never Patient Tobacco Use Status: Never used Tobacco service: No Meds Allergies Allergy/AdvReac Type Severity Reaction Status Date / Time Sulfa (Sulfonamide AdvReac Intermediate Agitated Verified 09/04/22 15:21 Antibiotics) Active Medications: Current Medications Acetaminophen (Acetaminophen 325 Mg Tablet) 650 mg PO Q6H PRN PRN Reason: Pain, Mild (Pain Scale 1-3) Enoxaparin Sodium (Enoxaparin Sodium 40 Mg/0.4 Ml Syringe) 40 mg SUBCUT Q24H [facility] Last Admin: 09/05/22 01:28 Dose: Not Given Vancomycin HCl 1,000 mg/ (Sodium Chloride) 270 mls @ 270 mls/hr IV Q12H [facility] Melatonin (Melatonin 3 Mg Tablet) 6 mg PO BEDTIME PRN PRN Reason: Insomnia Ondansetron HCl (Ondansetron Hcl 4 Mg/2 Ml Vial) 4 mg IVPUSH Q8H PRN PRN Reason: Nausea and Vomiting Pharmacy Consult (Consult Rx Perform Med Rec) 1 each MISCELLANE ONCE PRN PRN Reason: Consult order Pharmacy Consult (Consult Rx Vancomycin Dosing) 1 each MISCELLANE DAILY PRN PRN Reason: Consult order Sodium Chloride (0.9 % Sodium Chloride Flush 3 Ml Syringe) 3 ml IVFLUSH QSHIFT [facility] Last Admin: 09/05/22 09:08 Dose: 3 ml Physical Exam Vital Signs: Vital Signs: Last Vital Signs Temp 97.1 F 09/05/22 08:00 Pulse 82 09/05/22 08:00 Resp 18 09/05/22 08:00 BP 140/70 H 09/05/22 08:00 Pulse Ox 98 09/05/22 08:00 O2 Del Method Room Air 09/05/22 08:00 BMI result Body Mass Index 32.7 Const: General: comfortable and no acute distress Orientatio n/consciousness: patient oriented x3 Neck: Neck: Yes no lymphadenopathy Resp: Auscultation: clear to auscultation bilaterally Cardio: Rhythm: regular rhythm GI: Palpation (GI): Soft to palpation, nontender and no guarding Neuro: General: patient oriented x3 Extrem: Other: bilateral lower extremity edema, left more than the right, with chronic stasis changes, ulcer on the anterior left lower leg, about 4 cm in diameter, involving partial thickness of the skin, with scanty purulent drainage, no necrosis or gangrene Results Labs 09/05/22 08:08 09/05/22 08:08 Labs: Abnormal lab results 09/04/22 09/04/22 09/04/22 Range/Units 17:28 17:28 17:28 MPV 8.9 L (9.4-12.3) fL Neut % (Auto) 77.3 H (45-73) % Lymph % (Auto) 13.4 L (20-40) % Lymph # (Auto) (1.2-4.9) X10*3/uL Chloride (96-108) mmol/L Anion Gap (12-20) Lactic Acid 2.3 H* (0.5-2.0) mmol/L C-Reactive Protein 1.27 H (< or = 0.50) mg/dL 09/05/22 09/05/22 Range/Units 08:08 08:08 MPV 9.3 L (9.4-12.3) fL Neut % (Auto) (45-73) % Lymph % (Auto) 15.3 L (20-40) % Lymph # (Auto) 1.0 L (1.2-4.9) X10*3/uL Chloride 110 H (96-108) mmol/L Anion Gap 9 L (12-20) Lactic Acid (0.5-2.0) mmol/L C-Reactive Protein (< or = 0.50) mg/dL Short CBC 09/04/22 09/05/22 Range/Units 17:28 08:08 WBC 9.6 6.7 (4.8-10.8) X10*3/uL Hgb 13.4 13.4 (12.0-16.0) g/dl Hct 43.0 41.4 (37.0-47.0) % Plt Count 242 226 (160-400) X10*3/uL BMP 09/04/22 09/05/22 09/05/22 17:28 08:08 08:08 Sodium 136 140 Potassium 3.8 3.6 Chloride 103 110 H Carbon Dioxide 24 25 BUN 15 10 Creatinine 0.88 0.74 0.74 Calcium 9.3 8.5 D Liver Function 09/04/22 Range/Units 17:28 Total Bilirubin 0.4 (0.0-1.0) mg/dL AST 13 (5-31) U/L ALT 13 (0-31) U/L Alkaline Phosphatase 71 (39-117) U/L Albumin 4.1 (3.5-5.0) g/dL All other labs normal. Assessment and Plan (1) Stasis dermatitis of both legs: Status: Acute She has a stasis ulcer with some cellulitis on the left lower leg as described. I had cleaned this and bluntly debrided this with wet gauze. This was wrapped with dry dressings ang Chantel roll. She will need good wound care and control of the edema. She has been started on abx for cellulitis. I have instructed her on leg elevation to help with her edema. Time Spent With Patient Time: Total time managing care of this patient today ____ minutes. Procedures Date of Service Date of Service: 09/08/22
--- NOTE | 2022-09-05 11:54 | P.PNIM_ITS ---
Subjective Subjective Date of Service: 09/05/22 Interval History: Complaining of left leg discomfort and wound ,no fevers ,no chills no nausea no vomiting no other acute complaints overnight tolerating diet, no diarrhea no shortness of breath no chest pain. Review of Systems All other system reviewed and negative Physical Exam Vital Signs: Vital Signs: Last Vital Signs Temp 97.1 F 09/05/22 08:00 Pulse 82 09/05/22 08:00 Resp 18 09/05/22 08:00 BP 140/70 H 09/05/22 08:00 Pulse Ox 98 09/05/22 08:00 O2 Del Method Room Air 09/05/22 08:00 BMI result Body Mass Index 32.7 Const: Other: General sitting comfortably in no acute distress. Neck supple no JVD. CVS regular rate rhythm, Respiratory lungs clear to auscultation, no respiratory distress, no wheeze, no rhonchi. Gastrointestinal abdomen soft, nontender, bowel sounds audible, no guarding , no rigidity. Extremities bilateral edema, chronic skin discoloration due to venous stasis, ulcer or anterior left lower leg 4 cm in diameter with scanty purulent drainage Neuro nonfocal Psych appropriate affect Objective Data Active Medications Acetaminophen (Acetaminophen 325 Mg Tablet) 650 mg PO Q6H PRN PRN Reason: Pain, Mild (Pain Scale 1-3) Enoxaparin Sodium (Enoxaparin Sodium 40 Mg/0.4 Ml Syringe) 40 mg SUBCUT Q24H [facility] Last Admin: 09/05/22 01:28 Dose: Not Given Documented By: GONZALO Non-Admin Reason: Patient Refused Vancomycin HCl 1,000 mg/ (Sodium Chloride) 270 mls @ 270 mls/hr IV Q12H [facility] Melatonin (Melatonin 3 Mg Tablet) 6 mg PO BEDTIME PRN PRN Reason: Insomnia Ondansetron HCl (Ondansetron Hcl 4 Mg/2 Ml Vial) 4 mg IVPUSH Q8H PRN PRN Reason: Nausea and Vomiting Pharmacy Consult (Consult Rx Perform Med Rec) 1 each MISCELLANE ONCE PRN PRN Reason: Consult order Pharmacy Consult (Consult Rx Vancomycin Dosing) 1 each MISCELLANE DAILY PRN PRN Reason: Consult order Sodium Chloride (0.9 % Sodium Chloride Flush 3 Ml Syringe) 3 ml IVFLUSH QSHIFT [facility] Last Admin: 09/05/22 09:08 Dose: 3 ml Documented By: KIZZY Labs 09/05/22 08:08 09/05/22 08:08 Labs: Laboratory Results - last 24 hr 09/04/22 09/04/22 09/04/22 17:28 17:28 17:28 MCV 89.0 MCH 27.7 MCHC 31.2 RDW 13.2 Plt Count 242 MPV 8.9 L Immature Gran % (Auto) 0.3 Neut % (Auto) 77.3 H Lymph % (Auto) 13.4 L [place] % (Auto) 6.4 Eos % (Auto) 2.0 Baso % (Auto) 0.6 Lymph # (Auto) 1.3 [place] # (Auto) 0.6 Eos # (Auto) 0.2 Baso # (Auto) 0.1 Abs Immat Gran (auto) 0.03 Absolute Neuts (auto) 7.4 Absolute Nucleated RBC 0.000 Nucleated RBC % (auto) 0.0 ESR 7 Anion Gap 13 Estim Creat Clear Calc 76.2 Estimated GFR > 60 Random Glucose 106 Lactic Acid Lactic Acid F/U @ 2Hr Calcium 9.3 Magnesium 2.4 Total Bilirubin 0.4 AST 13 ALT 13 Alkaline Phosphatase 71 C-Reactive Protein 1.27 H Total Protein 6.9 Albumin 4.1 09/04/22 09/04/22 09/05/22 17:28 20:59 08:08 MCV 88.1 MCH 28.5 MCHC 32.4 RDW 13.4 Plt Count 226 MPV 9.3 L Immature Gran % (Auto) 0.3 Neut % (Auto) 70.9 Lymph % (Auto) 15.3 L [place] % (Auto) 9.3 Eos % (Auto) 3.3 Baso % (Auto) 0.9 Lymph # (Auto) 1.0 L [place] # (Auto) 0.6 Eos # (Auto) 0.2 Baso # (Auto) 0.1 Abs Immat Gran (auto) 0.02 Absolute Neuts (auto) 4.7 Absolute Nucleated RBC 0.000 Nucleated RBC % (auto) 0.0 ESR Anion Gap Estim Creat Clear Calc Estimated GFR Random Glucose Lactic Acid 2.3 H* Lactic Acid F/U @ 2Hr 1.5 Calcium Magnesium Total Bilirubin AST ALT Alkaline Phosphatase C-Reactive Protein Total Protein Albumin 09/05/22 09/05/22 08:08 08:08 MCV MCH MCHC RDW Plt Count MPV Immature Gran % (Auto) Neut % (Auto) Lymph % (Auto) [place] % (Auto) Eos % (Auto) Baso % (Auto) Lymph # (Auto) [place] # (Auto) Eos # (Auto) Baso # (Auto) Abs Immat Gran (auto) Absolute Neuts (auto) Absolute Nucleated RBC Nucleated RBC % (auto) ESR Anion Gap 9 L Estim Creat Clear Calc 90.1 90.1 Estimated GFR > 60 > 60 Random Glucose 93 Lactic Acid Lactic Acid F/U @ 2Hr Calcium 8.5 D Magnesium Total Bilirubin AST ALT Alkaline Phosphatase C-Reactive Protein Total Protein Albumin Assessment and Plan (1) Stasis dermatitis of both legs: Status: Acute (2) Cellulitis: Status: Acute Plan 67-year-old female with pertinent medical history of venous stasis, not on prescription medications who presents to the emergency department for evaluation of leg infection. #.? Purulent cellulitis of left lower extremity Chronic venous stasis with ulcer left lower leg.? continue IV vanco day 1 Blood culture pending. Obtain general surgery consult? Consulting Wound Care.? #.? Poor living condition.? 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 Lovenox Full code Regular diet Continue inpatient stay for left lower extremity cellulitis and venous stasis ulcer requiring IV antibiotics. Time Spent With Patient Time: Total time managing care of this patient today ____ minutes. Quality Stroke Does the patient have a stroke diagnosis?: No VTE Prior VTE?: No VTE Risk Level:: Medical - moderate - high VTE Device Contraindication: Treatment Not Indicated VTE Drug Contraindication: N/A - Med Ordered
[2022-09-05] MEDS: vancomycin HCL 1,000 MG in 0.9 % Sodium Chloride 250 ML 270 MG IV (13:10)
--- NOTE | 2022-09-05 14:22 | MHC.CM.PN ---
Addendum entered by Shiloh Cummings 09/05/22 15:48: CM WAS ABLE TO REACH GREG HODGES AT [phone] HE REPORTS HE IS NO LONGER WORKING DIRECTLY WITH [employer], HE SAYS HE WAS HER MHA HOUSING CM IN THE PAST, BUT SHE IS IN A DIFFERENT AREA NOW. HE REPORTS HE WILL STILL ASSIST WITH HER DC PLANNING HE REPORTS HE HAS NOT BEEN IN CONTACT WITH THE PT FOR ABOUT 3 MONTHS HOWEVER TYPICALLY, THEY SET HER UP IN HOUSING AND SHE REFUSES TO ENGAGE WITH THE WORKERS. HE IS AWARE SHE HAS HAD ONGOING DIFFICULTY WITH HER LEGS AND DOES NOT ENGAGE IN [facility] HE SAYS SHE WAS CONNECTED TO [facility], SO THEY MAY BE WILLING TO WRITE ORDERS THEY WOULD NEED TO BE CONTACTED ON WEDNESDAY GREG ALSO SAYS HE MAY BE ABLE TO ASSIST WITH GETTING AN AC IN THE PTS APARTMENT IF THAT WILL CONVINCE HER TO STAY HOME AND RECEIVE TREATMENT. GREG REPORTS HE WILL BE AVAILABLE TO ASSIST WITH DC PLANNING ON ANY DAY AND CAN BE REACHED VIA CELL PHONE AT THE ABOVE NUMBER Original Note: PT REPORTS SHE HAS AN APARTMENT AT [facility] IN [place], BUT SHE RARELY GOES THERE DURING THE SUMMER DUE TO THE TEMP SHE SAYS SHE RENTS HER APARTMENT THROUGH [employer] AND IS SUPPOSED TO RECEIVE SUPPORT THROUGH THEM BUT SAYS SHE CAN NEVER REACH ANYONE SHE SAYS HER PREVIOUS WORKER WAS GREG HODGES, AND HE WAS HELPFUL, BUT SHE HAS NOT BEEN ABLE TO REACH HIM IN A LONG TIME SHE SAYS SHE IS UNSURE IF HE IS STILL WORKING SHE SAYS SHE HAS NO OTHER COMMUNITY SERVICES AND DOES NOT REQUIRE DME, SHE DOES PUSH/PULL A CART MOST OF THE TIME SHE SAYS SHE WAS SUPPOSED TO HAVE A NEW PCP APPT COMING UP, BUT WHEN SHE LOOKED ON THE WEBSITE, SHE RECOGNIZED ONE OF THE WORKERS SOMEONE WHO HAS TRIED TO STEAL HER MEDICAL INFO IN THE PAST, SO SHE CANCELLED IT PT REPORTS SHE HAS [employer] BUT IS UNSURE IF SHE HAS MEDICARE SHE SAYS SHE IS SUPPOSED TO HAVE SERVICES VIA [facility] BUT THEY NEVER PROVIDE THEM SHE SAYS THEY ARE SUPPOSED TO PROVIDE HER TRANSPORTATION BUT THEY REQUIRE TWO DAYS NOTICE AND SHE NEVER KNOWS WHEN SHE WILL GET STRANDED SHE SAYS SHE SOMETIMES CAN TAKE THE BUT, BUT MANY DRIVERS WILL NOT ALLOW HER ON AND TELL HER IT IS BECAUSE THE BIG BOSS SAID SO SHE SAYS IT IS NOT PUBLIC KNOWLEDGE, BUT THERE IS A HEAD HERBERTH CALLED [employer], SHE SAYS NO ONE CAN CONFIRM THIS THOUGH BECAUSE THEY WOULD BE MADE MISERABLE PT DOES NOT WANT CM TO ARRANGE A NEW PCP APPT STATING SHE WILL CONTINUE TO USE THE ED OR SEE KYLER WHITEHEAD AT THE CLINIC SHE IS AWARE SHE WILL BE UNABLE TO HAVE A VNA [place] SHE SAYS SHE IS NOT GOING TO A SNF DCP TBD: CM WILL ATTEMPT TO CONTACT PTS MHA WORKER ON WEDNESDAY MHA WORKER: GREG HODGES [phone] PT REPORTS A PLAN TO RETURN TO HER APARTMENT AT [place] AND STATES SHE WILL NEED TRANSPORT OF NOTE: PT HAS A CART WITH SEVERAL BAGS OF BELONGINGS SHE WILL NEED TO TAKE WITH HER
[2022-09-05 15:47] VITALS: BP 141/68; PULSE 88; RESP 20; TEMP 36.8; O2SAT 99
[2022-09-05 20:00] VITALS: BP 144/69; PULSE 95; RESP 19; TEMP 36.1; O2SAT 97
[2022-09-06] MEDS: vancomycin HCL 1,000 MG in 0.9 % Sodium Chloride 250 ML 270 MG IV ×2 (01:23→13:13)
[2022-09-06] MEDS: 0.9 % Sodium Chloride Flush 3 ML SYRINGE IVFLUSH (01:24)
[2022-09-06 07:41] VITALS: BP 114/55; PULSE 79; RESP 18; TEMP 36.1; O2SAT 97
--- NOTE | 2022-09-06 09:56 | PC.NURSE ---
pt refused ordered PO lasix and PO potassium supplement stating she prefers to stay natural. Pt educated on diuretic use to help reduce edema and promote healing to bilateral lower extremeties. Pt also refusing dressing change. Dr Gibbs aware.
--- NOTE | 2022-09-06 09:59 | P.PNGS_ITS ---
Subjective Subjective Date of Service: 09/06/22 Interval history: no new complaints no events reported says she feels well Physical Exam Vital Signs: Vital Signs: Last Vital Signs Temp 96.9 F 09/06/22 07:41 Pulse 79 09/06/22 07:41 Resp 18 09/06/22 07:41 BP 114/55 L 09/06/22 07:41 Pulse Ox 97 09/06/22 07:41 O2 Del Method Room Air 09/06/22 07:41 BMI result Body Mass Index 32.7 Const: General: comfortable and no acute distress Resp: Effort & Inspection: normal respiratory effort Cardio: Rate: regular rate GI: Palpation (GI): Soft to palpation Extrem: Other: edema of lower leg, left more than right, stasis dermatitis with skin breakdown anteriorly Objective Data Active Medications Acetaminophen (Acetaminophen 325 Mg Tablet) 650 mg PO Q6H PRN PRN Reason: Pain, Mild (Pain Scale 1-3) Enoxaparin Sodium (Enoxaparin Sodium 40 Mg/0.4 Ml Syringe) 40 mg SUBCUT Q24H [facility] Last Admin: 09/06/22 02:10 Dose: Not Given Documented By: AYAH Non-Admin Reason: Patient Refused Vancomycin HCl 1,000 mg/ (Sodium Chloride) 270 mls @ 270 mls/hr IV Q12H [facility] Last Infusion: 09/06/22 02:26 Dose: 0 mls/hr Documented By: AYAH Melatonin (Melatonin 3 Mg Tablet) 6 mg PO BEDTIME PRN PRN Reason: Insomnia Ondansetron HCl (Ondansetron Hcl 4 Mg/2 Ml Vial) 4 mg IVPUSH Q8H PRN PRN Reason: Nausea and Vomiting Pharmacy Consult (Consult Rx Perform Med Rec) 1 each MISCELLANE ONCE PRN PRN Reason: Consult order Pharmacy Consult (Consult Rx Vancomycin Dosing) 1 each MISCELLANE DAILY PRN PRN Reason: Consult order Sodium Chloride (0.9 % Sodium Chloride Flush 3 Ml Syringe) 3 ml IVFLUSH QSHIFT [facility] Last Admin: 09/06/22 09:01 Dose: Not Given Documented By: KIZZY Non-Admin Reason: Patient Refused Labs 09/05/22 08:08 09/05/22 08:08 Microbiology Microbiology Results: Microbiology 09/04/22 17:29 Blood Culture - Preliminary Blood - Venous No growth after 24 hours. 09/04/22 17:28 Blood Culture - Preliminary Blood - Venous No growth after 24 hours. Procedures Date of Service Date of Service: 09/06/22 Progress Note: A&P Assessment and plan (1) Stasis dermatitis of both legs: Status: Acute Assessment and Plan: dressings changed wound cleaned reapplied dry dressings leg elevation to decrease edema wound care she understands plan (2) Cellulitis: Status: Acute Time Spent With Patient Time: Total time managing care of this patient today ____ minutes. Quality Stroke Does the patient have a stroke diagnosis?: No VTE Prior VTE?: No VTE Risk Level:: Medical - moderate - high VTE Device Contraindication: Treatment Not Indicated VTE Drug Contraindication: N/A - Med Ordered
--- NOTE | 2022-09-06 11:11 | HO.PM.IMPN ---
Subjective Subjective Date of Service: 09/06/22 Interval History: Being followed for left lower extremity cellulitis and left leg wound, patient refusing dressing change to left leg, refused Lovenox and diuretics she is adamant that she is not going to take diuretics, later agreed for dressing change by Dr. Cole, denies fever, no chills tolerating diet no nausea no vomiting no abdominal pain no other acute issues. Physical Exam Vital Signs: Vital Signs: Last Vital Signs Temp 96.9 F 09/06/22 07:41 Pulse 79 09/06/22 07:41 Resp 18 09/06/22 07:41 BP 114/55 L 09/06/22 07:41 Pulse Ox 97 09/06/22 07:41 O2 Del Method Room Air 09/06/22 07:41 BMI result Body Mass Index 32.7 Const: Other: General sitting co mfortably in no ac balbir distress.? Nec k supple no JVD. C VS? regular rate r hythm, Respiratory lungs clear to au scultation, no res piratory distress, no wheeze, no rho nchi. Gastrointest inal abdomen soft, nontender, bowel sounds audible,? n o guarding , no ri gidity. Extremitie s bilateral edema, chronic skin disc oloration due to v enous stasis, ulce r anterior left lo wer leg 4 cm in di ameter dressing wi th purulent draina ge Neuro nonfocal Psych appropriate affect Objective Data Active Medications Acetaminophen (Acetaminophen 325 Mg Tablet) 650 mg PO Q6H PRN PRN Reason: Pain, Mild (Pain Scale 1-3) Enoxaparin Sodium (Enoxaparin Sodium 40 Mg/0.4 Ml Syringe) 40 mg SUBCUT Q24H [facility] Last Admin: 09/06/22 02:10 Dose: Not Given Documented By: AYAH Non-Admin Reason: Patient Refused Vancomycin HCl 1,000 mg/ (Sodium Chloride) 270 mls @ 270 mls/hr IV Q12H [facility] Last Infusion: 09/06/22 02:26 Dose: 0 mls/hr Documented By: AYAH Melatonin (Melatonin 3 Mg Tablet) 6 mg PO BEDTIME PRN PRN Reason: Insomnia Ondansetron HCl (Ondansetron Hcl 4 Mg/2 Ml Vial) 4 mg IVPUSH Q8H PRN PRN Reason: Nausea and Vomiting Pharmacy Consult (Consult Rx Perform Med Rec) 1 each MISCELLANE ONCE PRN PRN Reason: Consult order Pharmacy Consult (Consult Rx Vancomycin Dosing) 1 each MISCELLANE DAILY PRN PRN Reason: Consult order Sodium Chloride (0.9 % Sodium Chloride Flush 3 Ml Syringe) 3 ml IVFLUSH QSHIFT [facility] Last Admin: 09/06/22 09:01 Dose: Not Given Documented By: KIZZY Non-Admin Reason: Patient Refused Labs 09/05/22 08:08 09/05/22 08:08 Microbiology Microbiology Results: Microbiology 09/04/22 17:29 Blood Culture - Preliminary Blood - Venous No growth after 24 hours. 09/04/22 17:28 Blood Culture - Preliminary Blood - Venous No growth after 24 hours. Assessment and Plan (1) Stasis dermatitis of both legs: Status: Acute (2) Cellulitis: Status: Acute Plan 67-year-old female with pertinent medical history of venous stasis, not on prescription medications who presents to the emergency department for evaluation of leg infection. #.? Purulent cellulitis of left lower extremity Chronic venous stasis with ulcer left lower leg.? continue IV vanco day 2 Blood culture x2 no growth times 24 hours, will transition to by mouth Augmentin if blood cultures remain negative in 48 hours Underwent blunt debridement at bedside by General surgery, continue dry dressing.? Strongly recommend to keep legs elevated, ordered diuretics however patient declined. #.? Poor living condition.? 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 Lovenox (patient refusing Lovenox informed her about risk of DVT) patient aware of risks continue to decline Full code Regular diet Continue inpatient stay for left lower extremity cellulitis and venous stasis ulcer requiring IV antibiotics. Time Spent With Patient Time: Total time managing care of this patient today ____ minutes. Quality Stroke Does the patient have a stroke diagnosis?: No VTE Prior VTE?: No VTE Risk Level:: Medical - moderate - high VTE Device Contraindication: Treatment Not Indicated VTE Drug Contraindication: N/A - Med Ordered
[2022-09-06 11:20] LABS: Creatinine Clr Calc Pharmacy 80.3; Estimated Glomerular Filt Rate > 60; Vancomycin Trough 15.4 mcg/mL (10.0-20.0)
--- NOTE | 2022-09-06 11:27 | HE.PHANOTE ---
RE: vanco dosing SCr stable, trough today 15.4. Will continue current regimen and check level again tomorrow @1100.
[2022-09-06 15:44] VITALS: BP 169/73; PULSE 88; RESP 16; TEMP 36.7; O2SAT 96
[2022-09-06 19:57] VITALS: BP 149/78; PULSE 99; RESP 14; TEMP 36.1; O2SAT 97
--- NOTE | 2022-09-06 23:02 | PC.NURSE ---
Pt. refusing all assessments this shift. This nurse attempted twice.
--- NOTE | 2022-09-07 00:21 | MHC.PIE ---
p; in pt room, try to introduce myself and start iv abx. pt refusing any to hear anything or take any medications claiming i just want to sleep . attempted to redirect with pt refusing to hear anything at this time. i; dr queen notified e; will cont to monitor
[2022-09-07 07:54] VITALS: BP 126/64; PULSE 91; RESP 18; TEMP 36.4; O2SAT 99
--- NOTE | 2022-09-07 10:57 | PC.NURSE ---
Pt agreeable to left lower leg dsg change. wound cleaned with NS. Attempted to apply clean dsg At which time lab trech came to draw blood. Pt became overwhelmed and made us leave the room.
--- NOTE | 2022-09-07 11:16 | MHC.CM.PN ---
Addendum entered by Shiloh Cummings 09/07/22 11:52: PTS MHA WORKER JADYN PRESENTED AT BEDSIDE SHE REPORTS THE PTS ELECTRIC IS DEFINITELY ON IT IS INCLUDED IN THE RENT SHE SAYS SHE SPOKE TO [facility] AND THEY WILL DELIVER AN A/C TODAY SHE SAYS THE PT WILL NOT ALLOW ANY SERVICES INSIDE THE HOME BUT SHE WILL ASSIST PT IN FOLLOWING UP WITH [facility] JADYN WILL ASSIST PT WITH TRANSPORTATION ONCE SHE IS READY TO LEAVE Original Note: PT WILL BE CLEARED TO DC TODAY MARIA ATTEMPTED TO REACH GREG HODGES [phone] AT [facility] HOWEVER HIS VM INDICATED HE WOULD BE OUT OF THE OFFICE CM CALLED THE MAIN LINE FOR [facility] IN [place] [phone] AND WAS INFORMED TOSHIA CALDERON MAYBE ABLE TO HELP. THE CALL WAS CONNECTED TO TOSHIA, WHO INDICATED THE PT WORKS WITH [facility] [phone]. MARIA CALLED [facility], WHO REPORTS THE PTS CASE WAS TRANSFERRED TO A DIFFERENT OFFICE, AND HER CURRENT WORKER IS JADYN NUÑEZ [phone]. [facility] DID CONFIRM THEY DO HAVE AN A/C THAT THEY WILL LOAN TO THE PT AND INSTALL, HOWEVER, THEY ARE CONCERNED THE PT MAY NOT HAVE PAID HER ELECTRIC BILL. [facility] SAYS JADYN WILL HAVE THE UP-TO-DATE INFO. MARIA ATTEMPTED TO CONTACT PTS MHA WORKER, JADYN. A VM WAS LEFT REQUESTING A RETURN CALL
--- NOTE | 2022-09-07 11:41 | P.DS_ITS ---
DS: Providers Provider Date of Service: 09/07/22 Date of admission: 09/05/22 00:48 Date of discharge: 09/07/22 Primary care physician: Unknown Physician Consults: 09/05/22 10:35 Consult to General Surgery Routine Consulting Provider: Cedrick Cole Reason for consultation: left leg wound Has provider been notified: No DS: Diagnosis Discharge Diagnosis (1) Stasis dermatitis of both legs: Status: Acute (2) Cellulitis: Status: Acute DS: Summary Hospital Course Hospital Course: 67-year-old female with pertinent medical history of venous stasis, not on prescription medications who presents to the emergency department for evaluation of leg infection.? Patient states that she has had intermittent leg infections since February 2020.? Patient states that her left leg has been draining purulent fluid, unspecified duration.? Admits chills but denies fever.? Patient denies any known past medical history and states she has never taken any prescription medications.? No chest discomfort, palpitations, shortness of breath, abdominal pain, changes in urinary or bowel habits. Hospital COurse Patient admitted and started on IV vancomycin. Patient intermittently refuse treatment and meds during the course of her hospitalization; did allow surgery to change dressing. Surgery recommendation was a dry dressing daily and follow- up with wound care as an outpatient. On the day of discharge she was adamantly asking for discharge; I believe at this time she is medically acceptable for same. She will complete a course of oral Augmentin and follow up with PCP in 2 weeks Time Spent with Patient Time attestation: Total time managing care of this patient today ____ minutes. Discharge coordination time: Greater than 30 minutes Quality: Safe Use of Opioids Does Pt have an Active Cancer Diagnosis on the Problem List?: No Quality: Stroke Does the patient have a stroke diagnosis?: No Physical Exam Vital Signs: Vital Signs: Last Vital Signs Temp 97.6 F 09/07/22 07:54 Pulse 91 09/07/22 07:54 Resp 18 09/07/22 07:54 BP 126/64 09/07/22 07:54 Pulse Ox 99 09/07/22 07:54 O2 Del Method Room Air 09/07/22 07:54 BMI result Body Mass Index 32.7 Const: Other: awake alert no acute distress Resp: Other: clear to auscultation bilaterally no rales rhonchi or wheezes Cardio: Other: no S4; positive S1-S2; no S3 murmurs rubs or gallops GI: Other: soft nontender nondistended normoactive bowel sounds Extrem: Other: stasis dermatitis bilaterally with skin breakdown anterior lower legs DS: Data Data Completed and Pending Labs on day of discharge: Preliminary micro results at discharge 09/04/22 17:29 Blood Culture - Preliminary Blood - Venous No growth after 48 hours. 09/04/22 17:28 Blood Culture - Preliminary Blood - Venous No growth after 48 hours. Discharge Plan Discharge Anticipated Discharge Date/Time: 09/07/22 11:38 Patient Disposition: Home Health Service Discharge Diagnosis: left lower extremity dermatitis Referrals: Physician,Unknown J [Primary Care Provider] - 1 Week Discharge Medications: New amoxicillin-pot clavulanate 875-125 mg tablet 1 tab PO BID Qty: 20 0RF Discharge Orders: Discharge Order (Routine); Ordered 09/07/22 Ordered By: Clarence Sampson Diet: Advance to usual diet Activity on Discharge: As tolerated Stand Alone Forms: Patient Portal Discharge page Care Plan Goals: VNA to change dressing; dry dressing daily. Follow-up with wound care Health Concerns: take Augmentin 875 twice daily for 10 days. Finish all medicines Plan of Treatment: follow-up with PCP in 2 weeks Assessment: see discharge summary
== END 2022-09-07 14:16 | disposition home health service (06) | DRG 383 ==
LOC: HO.ED 09-05 00:56 → HO.EDOVER 09-05 01:10 → HO.S3 09-05 01:39
PROVIDERS: Physician Assistant Medical; Admitting Provider Student in an Organized Health Care Education/Training Program; Emergency Provider Internal Medicine; Visit Provider Hospitalist
DX: L03.116 Cellulitis of left lower limb (principal); I87.312 Chronic venous hypertension (idiopathic) with ulcer of left lower extremity; I87.321 Chronic venous hypertension (idiopathic) with inflammation of right lower extremity; L97.829 Non-pressure chronic ulcer of other part of left lower leg with unspecified severity; Z59.10 Inadequate housing, unspecified
CPT/HCPCS: 36415; 73590; 80048; 80053; 80202; 82565; 83605; 83735; 85025; 85652; 86140; 87040; 93971; 99221; 99285; J1650; J2543; J3370

== ENCOUNTER → 2022-09-04 23:36 | Outpatient (BNV) | payer MEDICAID, SELFPAY | PROVIDERS: Emergency Provider Internal Medicine; Visit Provider Student in an Organized Health Care Education/Training Program | DX: I87.2 Venous insufficiency (chronic) (peripheral) (principal); L03.116 Cellulitis of left lower limb | CPT/HCPCS: 99223; 99232; 99239; 99499 ==

== ENCOUNTER → 2022-09-05 00:48 | Outpatient (BNV) | payer MEDICAID, SELFPAY | PROVIDERS: Admitting Provider Student in an Organized Health Care Education/Training Program; Emergency Provider Internal Medicine; Visit Provider Surgery | DX: I87.2 Venous insufficiency (chronic) (peripheral) (principal); L03.90 Cellulitis, unspecified | CPT/HCPCS: 99222; 99232 ==

== ENCOUNTER 2023-10-20 16:34 | Emergency (ER) | payer MEDICARE, SELFPAY ==
[2023-10-20 16:54] VITALS: BP 141/76; PULSE 95; RESP 20; TEMP 36.6; O2SAT 99; BMI 30.4
--- NOTE | 2023-10-20 16:55 | ED_ITS ---
HPI - General Adult General Chief complaint: Skin/Abscess/Foreign Body Stated complaint: bilateral leg swelling Time Seen by Provider: 10/20/23 23:59 Related Data Previous Rx's ?Medication ?Instructions ?Recorded amoxicillin 875 mg-potassium 1 tab PO BID #20 tabs 09/07/22 clavulanate 125 mg tablet cephalexin 500 mg capsule 500 mg PO BID #20 caps 10/21/23 doxycycline hyclate 100 mg capsule 100 mg PO BID #20 caps 10/21/23 furosemide 40 mg tablet (Lasix) 40 mg PO DAILY #5 tabs 10/21/23 Allergies Allergy/AdvReac Type Severity Reaction Status Date / Time Sulfa (Sulfonamide AdvReac Intermediate Agitated Verified 10/20/23 16:58 Antibiotics) Tetracyclines AdvReac Nausea Verified 10/20/23 16:58 PMFSH Past Medical History Medical History Stasis dermatitis of both legs Social History Social History Household Members: None Housing: Apartment Do you presently have visiting nurse or other home services: No Alcohol intake: never Patient Tobacco Use Status: Never used Tobacco Advance Directives: No Advance Directives Information Provided: No service: No Physical Exam ED Vital Signs: Vital Signs - 24 hr 10/20/23 16:54 10/20/23 21:13 10/21/23 01:39 Temperature 97.8 F 97.9 F 97.9 F Pulse Rate 95 103 H 103 H Respiratory Rate 20 16 16 Blood Pressure 141/76 H 133/79 133/79 Pulse Oximetry 99 96 96 Oxygen Delivery Method Room Air Room Air Room Air BMI result Body Mass Index 30.4 Course Course Course Narrative: This is an RME: Additional HPI, ROS, PE not included below will be deferred to primary provider. RME assessment and note performed by: Sharita Dobson PA-C This is a 77-ygbe-[age]-female who presents to the ER with a complaint of BL leg swelling. She has venous stasis, reports that wounds have been oozing. She was previously admitted last year for similar presentation. She does not have a primary care physician and does not take any medications daily. Plan: Labs, blood cultures, further ER evaluation needed. Medications Administered Discontinued Medications Generic Name Dose Route Start Last Admin Trade Name Freq PRN Reason Stop Dose Admin Cephalexin HCl 500 mg 10/21/23 00:34 10/21/23 00:56 Cephalexin 500 Mg Capsule PO 10/21/23 00:35 500 mg ONCE ONE Administration Doxycycline Monohydrate 100 mg 10/21/23 00:34 10/21/23 00:56 Doxycycline Monohydrate 100 Mg Capsule PO 10/21/23 00:35 100 mg ONCE ONE Administration Medical Decision Making Lab Data 10/20/23 17:35 10/20/23 17:35 Labs: Lab Results 10/20/23 Range/Units 17:35 WBC 7.6 (4.8-10.8) X10*3/uL RBC 4.37 (4.20-5.50) X10*6/uL Hgb 12.1 (12.0-16.0) g/dl Hct 37.2 (37.0-47.0) % MCV 85.1 (80.0-98.0) fL MCH 27.7 (27.0-33.0) pg MCHC 32.5 (31.0-35.0) g/dl RDW 14.1 (11.0-16.0) % Plt Count 244 (160-400) X10*3/uL MPV 8.8 L (9.4-12.3) fL Immature Gran % (Auto) 0.3 (0.0-0.4) % Neut % (Auto) 69.4 (45-73) % Lymph % (Auto) 17.9 L (20-40) % [place] % (Auto) 8.0 (2-11) % Eos % (Auto) 3.4 (0-4) % Baso % (Auto) 1.0 (0-2) % Lymph # (Auto) 1.4 (1.2-4.9) X10*3/uL [place] # (Auto) 0.6 (0.1-1.2) X10*3/uL Eos # (Auto) 0.3 (0.0-0.4) X10*3/uL Baso # (Auto) 0.1 (0.0-0.2) X10*3/uL Abs Immat Gran (auto) 0.02 (0.00-0.03) X10*3/uL Absolute Neuts (auto) 5.3 (2.0-8.3) x10*3/uL Absolute Nucleated RBC 0.000 (0.0-0.012) X10*3/uL Nucleated RBC % (auto) 0.0 (0.0-0.2) /100WBC Sodium 137 (135-145) mmol/L Potassium 4.3 (3.3-5.1) mmol/L Chloride 104 (96-108) mmol/L Carbon Dioxide 25 (22-29) mmol/L Anion Gap 12 (12-20) BUN 13 (9-16) mg/dL Creatinine 0.86 (0.5-1.4) mg/dL Estim Creat Clear Calc 73.7 Estimated GFR > 60 Random Glucose 109 (60-115) mg/dL Calcium 9.2 D (8.4-10.2) mg/dL Total Bilirubin 0.2 (0.0-1.0) mg/dL Direct Bilirubin < 0.2 (0.0-0.5) mg/dL AST 11 (5-31) U/L ALT 11 (0-31) U/L Alkaline Phosphatase 72 (39-117) U/L B-Natriuretic Peptide 19 (<100) pg/mL Total Protein 6.9 (6.5-8.0) g/dL Albumin 3.6 (3.5-5.0) g/dL Discharge Plan Discharge Clinical Impression: Bilateral edema of lower extremity, Cellulitis Patient Disposition: Home, Self-Care Instructions: Cellulitis (ED), Leg Edema (ED) Additional Instructions: Please follow-up with your primary care physician tomorrow. If you have any worsening or new symptoms, please return to the emergency room or call 911 Prescriptions: New cephalexin 500 mg capsule 500 mg PO BID Qty: 20 0RF doxycycline hyclate 100 mg capsule 100 mg PO BID Qty: 20 0RF furosemide [Lasix] 40 mg tablet 40 mg PO DAILY Qty: 5 0RF No Action amoxicillin-pot clavulanate 875-125 mg tablet 1 tab PO BID Qty: 20 0RF Interventions: ED Discharge Assessment Last Done: 10/21/23 01:39 Discharge Date/Time: 10/21/23 01:40 Print Language: Occitan
[2023-10-20 17:43] LABS: MANUAL DIFF FLAG NO
[2023-10-20 17:45] LABS: Basophils Absolute Auto 0.1 X10*3/uL (0.0-0.2); Eosinophils Absolute Auto 0.3 X10*3/uL (0.0-0.4); Eosinophils Percent Auto 3.4 % (0-4); Hematocrit 37.2 % (37.0-47.0); Hemoglobin 12.1 g/dl (12.0-16.0); Imm Gran Abs Auto 0.02 X10*3/uL (0.00-0.03); Imm Gran Pct Auto 0.3 % (0.0-0.4); Lymphocytes Absolute Auto 1.4 X10*3/uL (1.2-4.9); Lymphocytes Percent Auto 17.9 % (20-40); Mean Corpuscular HGB Conc 32.5 g/dl (31.0-35.0); Mean Corpuscular Hemoglobin 27.7 pg (27.0-33.0); Mean Corpuscular Volume 85.1 fL (80.0-98.0); Mean Platelet Volume 8.8 fL (9.4-12.3); Monocytes Absolute Auto 0.6 X10*3/uL (0.1-1.2); Neutrophils Absolute Auto 5.3 x10*3/uL (2.0-8.3); Neutrophils Percent Auto 69.4 % (45-73); Platelet Count 244 X10*3/uL (160-400); Red Blood Count 4.37 X10*6/uL (4.20-5.50); Red Cell Distribution Width 14.1 % (11.0-16.0); White Blood Count 7.6 X10*3/uL (4.8-10.8)
[2023-10-20 17:59] LABS: Alanine Aminotransferase 11 U/L (0-31); Albumin Level 3.6 g/dL (3.5-5.0); Alkaline Phosphatase 72 U/L (39-117); Anion Gap 12 (12-20); Aspartate Amino Transferase 11 U/L (5-31); Bilirubin Direct < 0.2 mg/dL (0.0-0.5); Bilirubin Total 0.2 mg/dL (0.0-1.0); Blood Urea Nitrogen 13 mg/dL (9-16); Calcium 9.2 mg/dL (8.4-10.2); Carbon Dioxide 25 mmol/L (22-29); Chloride 104 mmol/L (96-108); Creatinine Clr Calc Pharmacy 73.7; Estimated Glomerular Filt Rate > 60; Glucose Random 109 mg/dL (60-115); Potassium 4.3 mmol/L (3.3-5.1); Sodium 137 mmol/L (135-145); Total Protein 6.9 g/dL (6.5-8.0)
[2023-10-20 18:05] LABS: B Type Natriuretic Peptide 19 pg/mL (<100)
[2023-10-20 21:13] VITALS: BP 133/79; PULSE 103; RESP 16; TEMP 36.6; O2SAT 96
--- OUTSIDE RECORDS SUMMARY | 2023-10-20 21:25 | XMS_ITS | Continuity of Care Document ---
Author Organization [facility] Address [address] [place] [address]- Care Team Providers Care Wrapper Operator Name Role Phone Not on Staff, PCP Primary Care Physician Unavail able Encounter [facility] [place] [facility] R [id number] Date(s): 09/08/22 - 10/08/22 [facility]/[address] [address]- Attending Physician: Saumya Jackson Admitting Physician: Saumya Jackson Referring Physician: AdmtrSaumya Allergies, Adverse Reactions, Alerts Substance Reaction Severity Status doxycycline Nausea Active Lactose Active Problem List Condition Confirmation Course Effective Dates Status H ealth Status Informant Cholecystectomy Confirmed Active Chronic schizophrenia Confirmed Active Dental caries Confirmed 05/28/08 Active Homeless Confirmed Active Obese class I Confirmed Active Social History Social History Type Response Smoking Status Never smoker entered on: 06/11/16 Sex Patient Care team information Care Team Personnel Name: Not on Staff, PCP Position: S Physician (General Medicine) Member Role: PCP Care Team Related Persons Name: AUNDREA MCCOY Address: home [address] [place] [address]
--- OUTSIDE RECORDS SUMMARY | 2023-10-20 21:25 | XMS_ITS | Continuity of Care Document ---
Author Organization [facility] Address [address] [place] [address]- Care Team Providers Care Keying Machine Operator Name Role Phone Not on Staff, PCP Primary Care Physician Unavail able [place] [facility] [place](s): 06/10/22 - 10/08/22 [facility]/[address] [address]- Attending Physician: Yadira Araujo MD Admitting Physician: Yadira Araujo MD Allergies, Adverse Reactions, Alerts Substance Reaction [...] Role: PCP Care Team Related Persons Name: OMAIRASAILAJAAUNDREA Address: home [address] [place] [address]
--- OUTSIDE RECORDS SUMMARY | 2023-10-20 21:25 | XMS_ITS | Continuity of Care Document ---
Author Organization [facility] Address [address] [place] [address]- Care Team Providers Care Aerobics Instructor Name Role Phone Luann Cobb MD Primary Care Physician Encounter [facility] [place] Date(s): 01/14/23 - 02/13/[address] [address]- Attending Physician: Not on Staff, Attending MD Admitting Physician: Not on Staff, Admitting MD Referring Physician: Not on Staff, Referring MD Allergies, Adverse Reactions, Alerts Substance Reaction Severity Status doxycycline Nausea Active Lactose Active Medications 2 wheel walker with seat 2 wheel walker with seat, See Instructions, # 1 each, Refills 0, Tot. Refills 0, Maintenance, Dx: Generalised weakness, 01/13/23 15:06:00 EST, Supply Start Date: 01/13/23 Status: Ordered Problem List Condition Confirmation Course Effective Dates Status H ealth Status Informant Cholecystectomy Confirmed Active Chronic schizophrenia Confirmed Active Dental caries Confirmed 05/28/08 Active Homeless Confirmed Active Obese class I Confirmed Active Social History Social History Type Response Smoking Status Never smoker entered on: 06/11/16 Sex Patient Care team information Care Team Personnel Name: Luann Cobb MD Position: Reference Physician Member Role: PCP Address: Address: [address] [place] [address]- [place] Name: Dee Carpenter RN Position: [facility] RN Member Role: Primary Care Nurse Name: Lian Vance RN Position: [facility] RN Supv Member Role: Primary Care Nurse Care Team Related Persons Name: AUNDREA MCCOY Address: home [address] [place] [address]
--- OUTSIDE RECORDS SUMMARY | 2023-10-20 21:25 | XMS_ITS | Continuity of Care Document ---
Author Organization [facility] Address [address] [place] [address]- Care Team Providers Care Account Support Rep Name Role Phone Not on Staff, PCP Primary Care Physician Unavail able Encounter [facility] Date(s): 09/03/22 - 10/03/22 [facility]/[address] [address]- [place] Allergies, Adverse Reactions, Alerts Substance Reaction [...] Related Persons Name: AUNDREA MCCOY Address: home [address] [place] [id number]
--- OUTSIDE RECORDS SUMMARY | 2023-10-20 21:25 | XMS_ITS | Patient Health Record ---
Author Organization [facility] Address [address], [place] [id number] Care Team Providers Care Tax Representative Name Role Phone [facility] Primary Care Provi shayan Unavailable Ida Weldon Unavailable [phone] ALLERGIES Allergen (clinical drug ingredient) Drug/Non Drug Allergy documented on EMR Reaction Allergy Type Onset Date Status hay fever (uncoded) runny nose sneezing Allergy Active REASON FOR REFERRAL No Information MEDICATIONS Medication SIG (Take, Route, Frequency, Duration) Notes Start Date End Date Status triamcinolone topical 0.1% 1 clau applied topically 3 times a day for 7 day(s) 09/01/2017 Not-Taking Diapers as directed 6 per day urinary inc 04/24/2016 Not-Taking multivitamin Multiple Vitamins 1 tab(s) orally once a day for 30 day(s) 07/17/2016 Not-Taking doxycycline hyclate 100 mg 1 cap(s) orally 2 times a day Active Risperdal 1 mg 1 tab(s) orally 2 times a day for 30 day(s) Not-Taking Nizoral Topical 2% 1 clau applied topically 2 times a week Not-Taking cetirizine 10 mg 1 tab(s) orally once a day 07/23/2017 Not-Taking IMMUNIZATIONS Vaccine Route Administration Date Status Comme nts Td (adult) Unknown 02/16/2004 Administered PPD planted Unknown 03/30/2012 Administered PPD negative Unknown 04/01/2012 Administered 0 mm. Influenza IM Intramuscular 02/22/2015 Administered Tdap IM Intramuscular 10/04/2015 Administered Influenza IM Intramuscular 11/22/2015 Administered SOCIAL HISTORY Tobacco Use: Social History Observation Description Date Details (start date - stop date) Former Smoker NA - NA Sex Assigned At : Social History Observation Description Sex Assigned At Unknown Tobacco Use Assessment MU Question Answer Notes What is your current smoking status? 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) Active confirmed Constitutional tall stature (044956368) Problem Schizoaffective disorder, unspecified (F25.9) Active confirmed Schizoaffective disorder (39489693) Problem Dystonia, unspecified (G24.9) Active confirmed Dystonia (25227246) Problem Vitreous membranes and strands, bilateral (H43.313) Active confirmed Vitreous membranes (24128591) Problem Myopia, bilateral (H52.13) Active confirmed Myopia (98020426) Problem Other seasonal allergic rhinitis (J30.2) Active confirmed Seasonal allerg ic rhinitis (775811019) Problem Chronic sinusitis, unspecified (J32.9) Active confirmed Chronic sinusit is (00191850) Problem Dental caries, unspecified (K02.9) Active confirmed Dental caries (80950998) Problem Periapical abscess without sinus (K04.7) Active confirmed Periapical abscess without a sinus (781241622) Problem Constipation, unspecified (K59.00) Active confirmed Constipation (49910821) Problem Seborrheic dermatitis, unspecified (L21.9) Active confirmed Seborrheic dermatitis (88028307) Problem 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 Telogen effluvi um (16575649) Problem Corns and callosities (L84) Active confirmed Corns and callus (821781029) Problem Dorsalgia, unspecified (M54.9) Active confirmed Backache (192024063) Problem Overactive bladder (N32.81) Active confirmed Overactive bladder (744383989) Problem Enlarged and hypertrophic nails (Q84.5) Active 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) Problem Dysphagia, unspecified (R13.10) Active confirmed Dysphagia (54334317) Problem Auditory hallucinations (R44.0) Active confirmed Auditory hallucinations (28239498) Problem Weakness (R53.1) Active confirmed Weakn ess (46160486) Problem Adult failure to thrive (R62.7) Active confirmed Adult failure to thrive syndrome (915808893) Problem Abnormal weight loss (R63.4) Active confirmed Abnormal weight loss (986642110) Problem Abnormal results of kidney function studies (R94.4) Active confirmed Abnormal res ults of kidney function studies (446791965) Problem Hoarding disorder (F42.3) Active confirmed Obsessive-compu ls chidi disorder (690444977) Problem Unsheltered homelessness (Z59.02) Active confirmed Unsheltered homelessness ([id number]) PLAN OF TREATMENT Pending Test Test Name Order Date Prolactin 12/28/2013 Occult blood colorectal screen (age 50+, #3 stool cards have to be used) 06/09/2013 A1c - [facility] 03/07/2015 Comprehensive Metabolic Panel - [facility] 03/07/2015 Comprehensive Metabolic Panel - [facility] 12/28/2013 Thyroid Panel-[facility] 03/07/2015 Basic Metabolic Panel - [facility] 017 CBC with Diff - [facility] 12/28/2013 CBC with Diff - [facility] 03/07/2015 Urine Microalbumin/Creat ratio (spot) EKG 10/18/2019 LIPID PANEL 10/24/2019 COMPREHENSIVE METABOLIC PANEL-[facility] 09/2019 CBC (H/H, RBC, INDICES, WBC, PLT) 2019 URINALYSIS, COMPLETE 04/17/2016 HEMOGLOBIN A1c 10/24/2019 TSH W/REFLEX TO FT4 10/24/2019 HEPATITIS B SURFACE AB IMMUNITY, QN 06/15 MRI Brain Pituitary Protocol With and Wi thout contrast 03/03/2018 CBC WITH AUTO DIFF 10/18/2019 COMPREHENSIVE METABOLIC PANEL 10/18/2019 CARDIO CRP- HIGH SENSITIVE 10/18/2019 CR Chest Routine 2 Views 10/18/2019 Insurance Providers Payer Name Payer Address Payer Phone Subscriber Number Group Number Insured Name Patient Relationship to Insured Coverage Start Date Coverage End Date [place] Medicaid C3 [address] [place], [place] [id number] Kylee Singh Self - patient is the insured 0 [place] Medicaid Standard [address] [place] [id number] Yip Self - patient is the insured 0 MEDICAL (GENERAL) HISTORY Medical History History ICD Code Schizoaffective disorder NOS fibroids in uterus leiomyoma uterus Alopecia/Telogen Effluvium/ [facility] [phone] 03/01 Dyskinesia facial, torso and extremities chronic + scoliosis see xrays 07/01 recent hypotension/weakness por nut rition urinary inc does not like to discuss severe dental caries Constipation seen [facility] 2014 declinne d colonoscopy see scanned note Surgical History Surgery Date(Month/Year) gallbladder removed lap johnnie Toussaint 2008 appendectomy 14 yo Hospitalization History Reason Date(Month/Year) [facility] adm 2019 [facility] ization for too many calls to 911 and government agencies 06/2019 [facility] ER cough x 1 week d dimr 576H, CT Chest no evid PE H/H 11.2/34.8L, CXR COPD 06/06/16 GB 2008 [facility]-Section 12 12/09/12
--- NOTE | 2023-10-20 23:01 | PC.NURSE ---
Patient stood up, refusing to sit back in bed due to lower extremity discomfort and requested a chair. Initially offered a blue payne-bed chair, but asked for a regular chair . Given one of the black visitor chairs upon request. Continues to await ED provider evaluation.
--- NOTE | 2023-10-21 00:18 | ED_ITS ---
HPI - Skin/Abscess/Foreign Bdy General Chief complaint: Skin/Abscess/Foreign Body Stated complaint: bilateral leg swelling Time Seen by Provider: 10/20/23 23:59 Source: patient Mode of arrival: ambulatory Limitations: no limitations History of Present Illness ED Provider: Dr. Darlene Aldridge HPI narrative: patient comes to the emergency room complaining of bilateral lower extremity edema. Patient states that now her wounds are draining fluid. Patient states that she has not been taking any antibiotics. States that she went to a walk-in clinic, they did prescribe antibiotics but she was not allowed to get on the bus since she has a cart and carries a lot of things in it. Patient states that she was able to get an over but when they saw her, the armor reconnaissance vehicle driver drove away Related Data Previous Rx's ?Medication ?Instructions ?Recorded amoxicillin 875 mg-potassium 1 tab PO BID #20 tabs 09/07/22 clavulanate 125 mg tablet cephalexin 500 mg capsule 500 mg PO BID #20 caps 10/21/23 doxycycline hyclate 100 mg capsule 100 mg PO BID #20 caps 10/21/23 furosemide 40 mg tablet (Lasix) 40 mg PO DAILY #5 tabs 10/21/23 Allergies Allergy/AdvReac Type Severity Reaction Status Date / Time Sulfa (Sulfonamide AdvReac Intermediate Agitated Verified 10/20/23 16:58 Antibiotics) Tetracyclines AdvReac Nausea Verified 10/20/23 16:58 Review of Systems 2 Review of Systems: Please follow-up with your primary care physician tomorrow. If you have any worsening or new symptoms, please return to the emergency room or call [address] [facility] Past Medical History Medical History Stasis dermatitis of both legs Social History Social History Household Members: None Housing: Apartment Do you presently have visiting nurse or other home services: No Alcohol intake: never Patient Tobacco Use Status: Never used Tobacco Advance Directives: No Advance Directives Information Provided: No service: No Physical Exam 2 Vital Signs: Vital Signs: Last Vital Signs Temp 97.9 F 10/20/23 21:13 Pulse 103 H 10/20/23 21:13 Resp 16 10/20/23 21:13 BP 133/79 10/20/23 21:13 Pulse Ox 96 10/20/23 21:13 O2 Del Method Room Air 10/20/23 21:13 BMI result Body Mass Index 30.4 Const: Other: Appearance: Alert. Oriented X3. No acute distress. Eyes: Pupils equal, round and reactive to light. ENT: Pharynx normal. Neck: Normal inspection. Neck supple. No lymph nodes noted. No crepitus CVS: Normal heart rate and rhythm. Pulses normal. Normal S1 and S2 Respiratory: No respiratory distress. Breath sounds normal. No Wheezing. No rales Abdomen: Soft and nontender. No rigidity. No distention. Skin: see extremities below Extremities: patient has bilateral lower extremity edema, chronic venous stasis, fluid blisters. See pictures below Neuro: Oriented X 3. No motor deficit. No sensory deficit. Moving all extremities. No slurred speech. CN 2 through 12 grossly intact Psych: calm, cooperative, normal affect Medical Decision Making Medical Decision Making [facility] Narrative: - my interpretation of labs: white blood cell count normal. Chemistry normal, BNP normal - DVT less likely. Ultrasound was offered, patient declined getting an ultrasound done. - given the patient's situation, I discussed with the patient admitting her to the hospital for care since she can not get her prescriptions. Patient declined to be admitted - I discussed with the patient that she needs to keep her legs elevated. Patient states that it hurts elevated her legs and she is against doing it. Discussed with the patient that she needs compression in her legs even if it is with mild pressure with Patric wraps. Patient declines, states that she will never put anything in her legs that compressing her legs. also, I discussed with the patient that if she does not want to be admitted, I will prescribe her antibiotics and Lasix. Patient states that she is against taking Lasix. - Patient agrees to take antibiotics. Unfortunately, the patient already said that she will not follow any instructions. Admission was considered and offered to take better care of the patient since she does not do this at home. Patient declined admission. Patient states that after her 1st dose of p.o. antibiotics, she would like to be discharged Differential Diagnosis Differential Diagnoses: The differential diagnosis associated with the presentation includes ( cellulitis, venous insufficiency, lower extremity edema , DVT) Admission/Observation Consideration of admission/observation: Escalation of care including admission/observation considered Lab Data [facility] Lab Attestation statement: I reviewed the patient's lab results. 10/20/23 17:35 10/20/23 17:35 Labs: Lab Results 10/20/23 Range/Units 17:35 WBC 7.6 (4.8-10.8) X10*3/uL RBC 4.37 (4.20-5.50) X10*6/uL Hgb 12.1 (12.0-16.0) g/dl Hct 37.2 (37.0-47.0) % MCV 85.1 (80.0-98.0) fL MCH 27.7 (27.0-33.0) pg MCHC 32.5 (31.0-35.0) g/dl RDW 14.1 (11.0-16.0) % Plt Count 244 (160-400) X10*3/uL MPV 8.8 L (9.4-12.3) fL Immature Gran % (Auto) 0.3 (0.0-0.4) % Neut % (Auto) 69.4 (45-73) % Lymph % (Auto) 17.9 L (20-40) % Hutchinson % (Auto) 8.0 (2-11) % Eos % (Auto) 3.4 (0-4) % Baso % (Auto) 1.0 (0-2) % Lymph # (Auto) 1.4 (1.2-4.9) X10*3/uL Hutchinson # (Auto) 0.6 (0.1-1.2) X10*3/uL Eos # (Auto) 0.3 (0.0-0.4) X10*3/uL Baso # (Auto) 0.1 (0.0-0.2) X10*3/uL Abs Immat Gran (auto) 0.02 (0.00-0.03) X10*3/uL Absolute Neuts (auto) 5.3 (2.0-8.3) x10*3/uL Absolute Nucleated RBC 0.000 (0.0-0.012) X10*3/uL Nucleated RBC % (auto) 0.0 (0.0-0.2) /100WBC Sodium 137 (135-145) mmol/L Potassium 4.3 (3.3-5.1) mmol/L Chloride 104 (96-108) mmol/L Carbon Dioxide 25 (22-29) mmol/L Anion Gap 12 (12-20) BUN 13 (9-16) mg/dL Creatinine 0.86 (0.5-1.4) mg/dL Estim Creat Clear Calc 73.7 Estimated GFR > 60 Random Glucose 109 (60-115) mg/dL Calcium 9.2 D (8.4-10.2) mg/dL Total Bilirubin 0.2 (0.0-1.0) mg/dL Direct Bilirubin < 0.2 (0.0-0.5) mg/dL AST 11 (5-31) U/L ALT 11 (0-31) U/L Alkaline Phosphatase 72 (39-117) U/L B-Natriuretic Peptide 19 (<100) pg/mL Total Protein 6.9 (6.5-8.0) g/dL Albumin 3.6 (3.5-5.0) g/dL Critical Care Time Critical Care Time Critical Care Time: Yes Total Critical Care Time: 45 Attestation: I have personally provided critical care time. Time includes review of lab data, radiology results, discussion with consultants, and monitoring for potential decompensation. Intervention performed as documented. Discharge Plan Discharge Clinical Impression: Bilateral edema of lower extremity, Cellulitis Patient Disposition: Home, Self-Care Instructions: Cellulitis (ED), Leg Edema (ED) Additional Instructions: Please follow-up with your primary care physician tomorrow. If you have any worsening or new symptoms, please return to the emergency room or call 911 Prescriptions: New cephalexin 500 mg capsule 500 mg PO BID Qty: 20 0RF doxycycline hyclate 100 mg capsule 100 mg PO BID Qty: 20 0RF furosemide [Lasix] 40 mg tablet 40 mg PO DAILY Qty: 5 0RF No Action amoxicillin-pot clavulanate 875-125 mg tablet 1 tab PO BID Qty: 20 0RF Print Language: Chinese
[2023-10-21] MEDS: Doxycycline Monohydrate 100 MG CAPSULE PO (00:56)
[2023-10-21] MEDS: cephALEXin 500 MG CAPSULE PO (00:56)
[2023-10-21 01:39] VITALS: BP 133/79; PULSE 103; RESP 16; TEMP 36.6; O2SAT 96
== END 2023-10-21 01:40 | disposition home or self-care (01) ==
PROVIDERS: Physician Assistant Medical; Emergency Provider Emergency Medicine
DX: L03.116 Cellulitis of left lower limb (principal); I87.8 Other specified disorders of veins; R60.0 Localized edema
CPT/HCPCS: 36415; 80048; 80076; 83880; 85025; 87040; 99283